=== PATIENT | female | born 1950 | race Two or more races ===

== ENCOUNTER 2019-10-04 09:57 | Inpatient (IN) | payer MEDICARE ==
[~2019-10-04] VITALS: Ht 157.5 cm; Wt 71.7 kg
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
[2019-10-04 10:36] LABS: BASOPHILS # (AUTO) 0.1 /CMM (0.0-0.2); BASOPHILS % (AUTO) 0.9 % (0.0-2.0); EOSINOPHILS % (AUTO) 1.6 % (0.0-6.0); HEMATOCRIT 42 % (33-45); HEMOGLOBIN 13.8 g/dL (11.5-14.8); LYMPHOCYTES # (AUTO) 1.7 /CMM (0.8-4.8); LYMPHOCYTES % (AUTO) 28.1 % (20.0-44.0); MEAN CORPUSCULAR HGB CONC 33 g/dl (31.0-36.0); MEAN CORPUSCULAR VOLUME 92 fL (82-100); MONOCYTES # (AUTO) 0.4 /CMM (0.1-1.30); MONOCYTES % (AUTO) 7.3 % (2.0-12.0); NEUTROPHILS # (AUTO) 3.8 /CMM (1.8-8.9); NEUTROPHILS % (AUTO) 62.1 % (43.0-81.0); PLATELET COUNT (AUTO) 260 /CMM (150-450); RED BLOOD CELL COUNT(AUTO) 4.56 MIL/uL (4.0-5.2); WHITE BLOOD COUNT (AUTO) 6.1 K/uL (4.3-11.0)
[2019-10-04 10:48] LABS: APPEARANCE,URINE Clear (CLEAR); BILIRUBIN,URINE Negative (NEGATIVE); BLOOD, URINE Negative Ery/uL (NEGATIVE); COLOR,URINE Yellow (YELLOW); KETONES,URINE Negative (NEGATIVE); LEUKOCYTE ESTERASE ,URINE Trace (NEGATIVE); NITRITE, URINE Negative (NEGATIVE); PROTEIN,URINE Negative (NEGATIVE); UGLUCOSE Negative (NEGATIVE); UROBILINOGEN,URINE 0.2 EU/dL (0.2)
[2019-10-04 10:49] LABS: CALCIUM, SERUM 9.1 mg/dL (8.5-10.1); CARBON DIOXIDE 31 mmol/L (21-32); CHLORIDE 105 mmol/L (98-107); CREATININE 0.8 mg/dL (0.6-1.3); GLUCOSE 100 mg/dL (74-106); SODIUM SERUM 142 mmol/L (136-145); UREA NITROGEN, BLOOD 11 mg/dL (7-18)
[2019-10-04 10:54] LABS: SERUM AMMONIA 15 umol/L (11-32)
--- NOTE | 2019-10-04 11:00 | NUR ---
CALLED NURSING SUP FOR M/S BED.
--- NOTE | 2019-10-04 11:00 | NUR ---
patient taken to ct.
[2019-10-04 11:01] LABS: ALANINE AMINOTRANSFERASE 17 U/L (12-78); ALBUMIN 3.6 g/dL (3.4-5.0); ALKALINE PHOSPHATASE 112 U/L (46-116); ASPARTATE AMINOTRANSFERASE 16 U/L (15-37); BILIRUBIN,TOTAL 0.2 mg/dL (0.2-1.0); TOTAL PROTEIN, SERUM 7.4 g/dL (6.4-8.2)
[2019-10-04 11:02] LABS: SALICYLATE 1.2 mg/dL (2.8-20.0)
[2019-10-04 11:03] LABS: ACETAMINOPHEN < 2 ug/ml (10-30); THYROID STIMULATING HORMONE 2.146 uIU/mL (0.358-3.74)
[2019-10-04 11:07] LABS: BACTERIA,URINE Rare /HPF (None Seen); RBC,URINE 0-2 /HPF (0-2); SQUAMOUS EPITHELIAL CELL,UR Few /HPF (None Seen); WBC,URINE 0-2 /HPF (0-3)
--- NOTE | 2019-10-04 11:22 | NUR ---
NURSING SUP GAVE M/S BED 205-1.
--- NOTE | 2019-10-04 12:14 | NUR ---
report given to ADEN MERCHANT. Corrrection patient is a/ox2, with possible dementia and episode of wandering.
[2019-10-04] MEDS ORDERED: ZOLPIDEM TARTRATE 5 MG TABLET PO PRN (13:00)
[2019-10-04] MEDS ORDERED: LORAZEPAM 1 MG TABLET PO PRN (13:00)
[2019-10-04] MEDS ORDERED: ONDANSETRON HCL/PF 4 MG/2 ML VIAL IVP PRN (13:00)
[2019-10-04] MEDS ORDERED: HYDROCODONE/APAP 5/325MG 1 EACH TABLET PO PRN (13:00)
[2019-10-04] MEDS ORDERED: MAGNESIUM HYDROXIDE 30 ML UDC PO PRN (13:00)
[2019-10-04] MEDS ORDERED: MAG HYDROX/AL HYDROX/SIMETH 30 ML UDC PO PRN (13:00)
[2019-10-04] MEDS ORDERED: ACETAMINOPHEN 325 MG TABLET PO PRN (13:00)
--- NOTE | 2019-10-04 13:00 | NUR ---
MS/RN NOTE THE PATIENT IS RECEIVED FROM ER ON A GURNEY. THE PATIENT IS ASSISTED TO BED. PATIENT HAS STABLE GAIT. DENIES SOB. RESPIRATION REGULAR AND UNLABORED. DENIES SOB. COMPLAINS HEADACHE 09/11. PATIENT IS ALERT AND ORIENTED X2. RAC G 18 PATENT AND SALINE LOCKED. BED LOW AND LOCKED. SIDE RAILS UP X3. CALL LIGHT WITHIN REACH. WILL CONTINUE TO MONITOR.
[2019-10-04 15:57] VITALS: BP 129/59
[2019-10-04 16:00] VITALS: BP 125/65
--- NOTE | 2019-10-04 18:32 | NUR ---
MS/RN NOTE THE PATIENT IS IN BED. ALERT AND ORIENTED X2. ABLE TO MAKE NEEDS KNOWN VERBALLY. IN ROOM AIR AND SATURATION IS AT 99%. DENIES SOB. RESPIRATION REGULAR AND UNLABORED. DENIES PAIN. THE PATIENT IN NO APPARENT DISTRESS. RAC G 18 PATENT AND SALINE LOCKED. BED LOW AND LOCKED. SIDE RAILS UP X2. CALL LIGHT WITHIN REACH. WILL ENDORSE TO CHIEF TECHNOLOGY OFFICER.
--- NOTE | 2019-10-04 19:40 | NUR ---
RN OPENING NOTES RECEIVED REPORT FROM DAYSHIFT RN ADEN. FOUND Pt AWAKE, FIXING HER BED IN HER ROOM. NO S/S OF ACUTE DISTRESS OR SOB NOTED. NO C/O DISCOMFORT OR PAIN MENTIONED AT THIS TIME. Pt IS A/OX2, GEORGIAN SPEAKING ONLY, VERBAL, ABLE TO MAKE NEEDS KNOWN IN GEORGIAN. IV ACCESS ON RAC #18G, SL. SAFETY MEASURES IN PLACE. HELPED Pt GET SETTLED INTO BED. BED LOW, LOCKED, HOB ELEVATED, SIDE RAILS UP, CALL LIGHT AND BEDSIDE TABLE WITHIN REACH. BED ALARM ON. WILL CONTINUE TO MONITOR Pt's CONDITION ANS SAFETY THROUGHOUT THE NIGHT.
[2019-10-04 20:00] VITALS: BP 114/66
--- NOTE | 2019-10-04 20:00 | NUR ---
LUCIUS (Pt's FRIEND); HOME #: [phone]; CELL #: [phone].
[2019-10-04 21:00] VITALS: BP 114/66
[2019-10-05 06:18] LABS: BASOPHILS % (AUTO) 0.9 % (0.0-2.0); EOSINOPHILS % (AUTO) 2.9 % (0.0-6.0); HEMATOCRIT 41 % (33-45); HEMOGLOBIN 13.4 g/dL (11.5-14.8); LYMPHOCYTES # (AUTO) 1.8 /CMM (0.8-4.8); LYMPHOCYTES % (AUTO) 39.2 % (20.0-44.0); MEAN CORPUSCULAR HGB CONC 33 g/dl (31.0-36.0); MEAN CORPUSCULAR VOLUME 91 fL (82-100); MONOCYTES # (AUTO) 0.4 /CMM (0.1-1.30); MONOCYTES % (AUTO) 7.9 % (2.0-12.0); NEUTROPHILS # (AUTO) 2.2 /CMM (1.8-8.9); NEUTROPHILS % (AUTO) 49.1 % (43.0-81.0); PLATELET COUNT (AUTO) 244 /CMM (150-450); RED BLOOD CELL COUNT(AUTO) 4.47 MIL/uL (4.0-5.2); WHITE BLOOD COUNT (AUTO) 4.5 K/uL (4.3-11.0)
[2019-10-05 06:37] LABS: CALCIUM, SERUM 8.6 mg/dL (8.5-10.1); CREATININE 0.7 mg/dL (0.6-1.3); MAGNESIUM 2.3 mg/dL (1.8-2.4); PHOSPHORUS 4.4 mg/dL (2.5-4.9); POTASSIUM 4.3 mmol/L (3.5-5.1)
--- NOTE | 2019-10-05 06:45 | NUR ---
RN CLOSING NOTES NO SIGNIFICANT CHANGES IN Pt's CONDITION. NO S/S OF ACUTE DISTRESS OR SOB NOTED DURING THE NIGHT. Pt REMAINED STABLE PER BASELINE. ALL NEEDS MET AND ATTENDED TO. SAFETY MEASURES IN PLACE. Pt RESTING IN BED. WILL ENDORSE TO DAYSHIFT RN FOR Pt's TOMASA.
--- NOTE | 2019-10-05 07:40 | NUR ---
MS/RN NOTE THE PATIENT IS RECEIVED IN BED. PATIENT IS ALERT AND ORIENTED X2. IN ROOM AIR AND DENIES SOB. RESPIRATION REGULAR AND UNLABORED. DENIES PAIN. THE PATIENT IS IN NO APPARENT DISTRESS. RAC G 18 PATENT AND SALINE LOCKED. BED LOW AND LOCKED. SIDE RAILS UP X3. CALL LIGHT WITHIN REACH. WILL CONTINUE TO MONITOR.
[2019-10-05 08:00] VITALS: BP 122/71
[2019-10-05 16:00] VITALS: BP 123/55
--- NOTE | 2019-10-05 18:14 | NUR ---
MS/RN NOTE THE PATIENT ALERT AND ORIENTED X2. DENIES SOB. RESPIRATION REGULAR AND UNLABORED. IN ROOM AIR AND SATURATION LEVEL IS AT 97%. DENIES PAIN. THE PATIENT IN NO APPARENT DISTRESS. RAC G 18 PATENT AND SALINE LOCKED. BED LOW AND LOCKED. SIDE RAILS UP X3. CALL LIGHT WITHIN REACH. WILL ENDORSE TO SEISMIC COMPUTER.
--- NOTE | 2019-10-05 19:20 | NUR ---
RECEIVED PT IN BED A/O X 2 WATCHING TV STABLE AND NOT IN DISTRESS. SAFETY MEASURES AT ALL TIMES. WILL CONT TO MONITOR.
[2019-10-05 20:00] VITALS: BP 147/72
[2019-10-05] MEDS ORDERED: QUETIAPINE FUMARATE 25 MG TABLET PO SCH (22:00)
--- NOTE | 2019-10-06 06:21 | NUR ---
NO SIGNIFICANT CHANGES, PT SLEPT WELL, STABLE, NEEDS ATTENDED AND ANTICIPATED, KEPT CLEAN, DRY AND COMFORTABLE. AM CARE RENDERED. GOOD SKIN CARE AT ALL TIMES. SAFETY MEASURES AT ALL TIMES. WILL ENDORSE TO NEXT SHIFT.
--- NOTE | 2019-10-06 07:10 | NUR ---
RN OPENING NOTES RECEIVED PATIENT IN BED RESTING. RESPONSIVE TO VERBAL AND TACTILE STIMULI, FOLLOWS COMMAND, PANAMANIAN SPEAKING. NIOT IN ANY FORM OF DISTRESS. NO SOB. DENIED PAIN OR DISCOMFORT AT THIS TIME. IV ACCESS INTACT AND PATENT. KEPT PATIENT SAFE AND COMFORTABLE. BED IN LOW/LOCKED POSITION, SIDERAILS UPX2, CALL LIGHT IN REACH. WILL CONT TO MONITOR ACCORDINGLY.
[2019-10-06 07:49] VITALS: BP 131/83
[2019-10-06] MEDS ORDERED: LORA-259 PO (15:11)
[2019-10-06] MEDS ORDERED: MAGN400O6 PO (15:11)
[2019-10-06] MEDS ORDERED: ONDA4VIA52 IVP (15:11)
[2019-10-06] MEDS ORDERED: HYDR-4384 PO (15:11)
[2019-10-06] MEDS ORDERED: MAG30ORA PO (15:11)
[2019-10-06] MEDS ORDERED: ZOLP5TAB8 PO (15:11)
[2019-10-06] MEDS ORDERED: ACET-868 PO (15:11)
[2019-10-06] MEDS ORDERED: QUET25TA PO (15:11)
[2019-10-06 16:00] VITALS: BP 117/78
--- NOTE | 2019-10-06 17:20 | NUR ---
DISCHARGED PATIENT TO [facility] GPS ROOM 215-1 VIA WHEELCHAIR, FRIEND PRESENT AT THE UNIT. PATIENT IN STABLE CONDITION. DISCHARGED INSTRUCTIONS GIVEN TO THE PATIENT, VERBALIZED UNDERSTANDING. ALL BELONGINGS RETURNED, FORMS SIGNED. IV ACCESS REMOVED, TIP INTACT, NO COMPLICATIONS. REFUSED SKIN PHOTOS. REPORT GIVEN TO SANJANA ARAIZA NURSE. PATIENT DENIED SI/HI.
== END 2019-10-06 17:00 | DRG 640 ==
LOC: ER 10:01 → MEDSG2 12:35
PROVIDERS: ADMIT Nurse Practitioner Acute Care; ATTEND Internal Medicine
DX: E86.0 Dehydration (principal); G93.41 Metabolic encephalopathy; F03.90 Unspecified dementia, unspecified severity, without behavioral disturbance, psychotic disturbance, mood disturbance, and anxiety; E66.9 Obesity, unspecified; Z68.30 Body mass index [BMI] 30.0-30.9, adult; F29 Unspecified psychosis not due to a substance or known physiological condition; Z68.28 Body mass index [BMI] 28.0-28.9, adult
CPT/HCPCS: 36415; 70450-TC; 71045-TC; 80048-TC; 80061-TC; 80076-TC; 81000-TC; 82140-TC; 83735-TC; 84100-TC; 84443-TC; 85025-TC; 85730-TC; 87081-TC; 87086-TC; G0378; G0480

== ENCOUNTER 2019-10-06 14:25 | Inpatient (IN) | payer MEDICARE ==
[~2019-10-06] VITALS: Ht 157.5 cm; Wt 72.6 kg
[2019-10-06] MEDS ORDERED: HYDR-4384 PO (15:11)
[2019-10-06] MEDS ORDERED: LORA-259 PO (15:11)
[2019-10-06] MEDS ORDERED: MAG30ORA PO (15:11)
[2019-10-06] MEDS ORDERED: QUET25TA PO (15:11)
[2019-10-06] MEDS ORDERED: ACET-868 PO (15:11)
[2019-10-06] MEDS ORDERED: ONDA4VIA52 IVP (15:11)
[2019-10-06] MEDS ORDERED: MAGN400O6 PO (15:11)
[2019-10-06] MEDS ORDERED: ZOLP5TAB8 PO (15:11)
[2019-10-06 17:00] VITALS: BP 135/89
--- NOTE | 2019-10-06 17:00 | NUR ---
COOPER HELPER NOTE- PT ADMITTED VIA 205 MED SURG DIRECT ADMISSION 5150 GD FOR INCREASING PARANOIA, WANDERING BEHAVIORS AND CONFUSION. PT DEEMED NO LONGER ABLE TO TAKE CARE OF HERSELF. UPON FACE TO FACE ADMISSION, PT ALERT ORIENTED TO PERSON PLACE TIME. SOMEWHAT CONFUSED. PT FRIEND AT BEDSIDE TO ACT DIRECTOR OF CONSUMER MARKETING PT IS TAJIK SPEAKING. VS - B/P- 116/58. HR- 78/M. RR- 18/M, TEMP- 98.1, SATURATION-95% RA. PT IS A FULL CODE WITH NO KNOWN ALLERGIES. PT ON A REGULAR DIET. LABS WNL. PT IS AMBULATORY W STEADY GAIT AND USES BR. SKIN CHECK COMPLETED BY FEMALE RN. SKIN INTACT. PT RIGHTS HANDBOOK AND INFORMATION GIVEN TO PT. ALSO ORIENTED TO UNIT. CURRENTLY DENIES SI HI [facility] AT PRESENT MOMENT. VALUABLES STOWED AND RECORDED PER GPS PROTOCOL. PT ID [id number] APPLIED TO PT. BED IN LOW POSITION, BED ALARM ON. WILL PROVIDE CALM THERAPEUTIC ENVIRONMENT AND MONITOR PT PER GPS PROTOCOL.
[2019-10-06] MEDS ORDERED: MAG HYDROX/AL HYDROX/SIMETH 30 ML UDC PO PRN (17:30)
[2019-10-06] MEDS ORDERED: MAGNESIUM HYDROXIDE 30 ML UDC PO PRN (17:30)
[2019-10-06] MEDS ORDERED: BLOOD SUGAR DIAGNOSTIC 1 EACH STRIP IN ONE (17:30)
[2019-10-06] MEDS ORDERED: ACETAMINOPHEN 325 MG TABLET PO PRN (17:30)
[2019-10-06] MEDS ORDERED: LORAZEPAM 0.5 MG TABLET PO PRN (17:30)
[2019-10-06] MEDS ORDERED: TEMAZEPAM 7.5 MG CAPSULE PO PRN (17:30)
--- NOTE | 2019-10-06 18:13 | NUR ---
RN-CO: DR ANAI HANNON MADE AWARE THAT PATIENT IS IN THE UNIT AND HE CAN RECONCILE MEDICATIONS. DR SAINI ORDERED TO PUT HIS ADMITTING ORDERS NOTED. PATIENT WAS ORIENTED TO THE UNIT.( W/ THE HELP OF A ARMENIAN SPEAKING STAFF.)
--- NOTE | 2019-10-06 19:20 | NUR ---
RN OPENING NOTES: PT. RESTING IN BED ,CONFUSED PARANOID ,DISORGNIZED EASILY AGITATED , ALL NEEDS ATTENDED ANTICIPATED, ENCOURAGED PT. TO VERBALIZED ANY FEELING , NO ACUTE DISTRESS NOTED , NEEDS FREQUENTLY REDIRECTIONS , REALITY ORIENTIONS PROVIDED, WILL CONTINUITY WITH CARE.
[2019-10-06 20:20] VITALS: BP 116/58
[2019-10-07 07:29] LABS: ALBUMIN 3.5 g/dL (3.4-5.0); BILIRUBIN,TOTAL 0.3 mg/dL (0.2-1.0); CALCIUM, SERUM 8.9 mg/dL (8.5-10.1); CREATININE 0.7 mg/dL (0.6-1.3); POTASSIUM 4.2 mmol/L (3.5-5.1); TOTAL PROTEIN, SERUM 7.3 g/dL (6.4-8.2)
[2019-10-07 08:00] VITALS: BP 145/74
--- NOTE | 2019-10-07 09:00 | NUR ---
RN OPENING NOTE: RECEIVED PT LYING IN BED. NO ACUTE DISTRESS NOTED. VSS, AFEBRILE. PT A+OX3. PT IS ABLE TO MAKE NEEDS KNOWN. PT IS CONFUSED AND EASILY AGITATED. NO S/SX OF UTI NOTED. PT IS PARANOID AT TIMES. PT DENIES SI/HI/AH/VH AT PRESENT TIME. PT IS COMPLIANT WITH MEDICATION ADMINISTRATION AND PLAN OF CARE. PT AMBULATORY WITH STEADY GAINT. SELF CARE WITH ADL'S AND INTAKE. PT C/O 03/11 HEADACHE. REQUESTING TYLENOL. TYLENOL 650MG PO PRN GIVEN. WILL CONT TO MONITO PT FOR SAFETY AND BEHAVIOR PER GPS PROTOCOL.
--- NOTE | 2019-10-07 09:03 | NUR ---
RN NOTE: PT C/O HEADACHE. UNABLE TO SCALE ON PAIN SCALE. REQUESTING TYLENOL. TYLENOL 650MG PO GIVEN
[2019-10-07] MEDS: DIVALPROEX SODIUM 125 MG TABLET.DR PO SCH ×2 (11:59→20:57)
[2019-10-07 16:00] VITALS: BP 121/69
--- NOTE | 2019-10-07 19:20 | NUR ---
GPS RN OPENING NOTES: PT. WALKING AROUND THE UNIT ,CONFUSED PARANOID ,DISORGNIZED EASILY AGITATED , ALL NEEDS ATTENDED ANTICIPATED, ENCOURAGED PT. TO VERBALIZED ANY FEELING , NO ACUTE DISTRESS NOTED , NEEDS FREQUENTLY REDIRECTIONS , REALITY ORIENTIONS PROVIDED, WILL CONTINUITY WITH CARE.
[2019-10-07 20:20] VITALS: BP 125/76
[2019-10-07] MEDS: QUETIAPINE FUMARATE 25 MG TABLET PO SCH (21:06)
--- NOTE | 2019-10-08 07:35 | NUR ---
RN OPENING NOTE: RECEIVED PT LYING IN BED. NO ACUTE DISTRESS NOTED. VSS, AFEBRILE. PT A+OX3, ABLE TO MAKE NEEDS KNOWN. BULGARIAN SPEAKING. PT PLEASANT AND COOPERATIVE. PT WITH DISORGANIZED THOUGHT PROCESS. VISIBLE ON THE UNIT.PT DENIES SI/HI/AH/VH AT PRESENT TIME. EDUCATED PT ON USE OF THE CALL GONZALEZ. SIDE RAILS UP X 2. BED IN LOW AND LOCKED POSITION.WILL CONT TO MONITOR PT FOR SAFETY AND BEHAVIOR PER GPS PROTOCOL
[2019-10-08 08:00] VITALS: BP 118/61
[2019-10-08] MEDS: DIVALPROEX SODIUM 125 MG TABLET.DR PO SCH ×2 (08:19→20:18)
[2019-10-08 16:06] VITALS: BP 136/74
[2019-10-08 20:11] VITALS: BP 121/86
[2019-10-08] MEDS: QUETIAPINE FUMARATE 25 MG TABLET PO SCH (21:00)
--- NOTE | 2019-10-09 07:45 | NUR ---
RN OPENING NOTE: PT RECEIVED LYING IN BED. NO ACUTE DISTRESS NOTED. A+OX2, ABLE TO MAKE NEEDS KNOWN. PT CONT TO BE PARANOID AND DELUSIONAL. PT IS DISHEVELED AND UNKEPT. PT INDEPENDENT WITH ADL'S AND AMBULATORY. PT COMPLIANT WITH MEDICATION ADMINISTRATION AND PLAN OF CARE. PT DENIES SI/HI/AH/VH AT PRESENT TIME. BED IN LOW AND LOCKED POSITION WITH SIDE RAILS UP X 2. WILL CONT TO MONITOR PT FOR BEHAVIOR AND SAFETY PER GPS PROTOCOL
[2019-10-09 08:00] VITALS: BP 132/58
[2019-10-09] MEDS: DIVALPROEX SODIUM 125 MG TABLET.DR PO SCH ×2 (08:15→17:15)
--- NOTE | 2019-10-09 09:10 | NUR ---
CAREGIVER CONTACT: SW spoke with pts friend/caregiver Yumiko [phone] who provided SW with collateral information and discussed treatment and discharge planning. Per friend, she states that pt recently came from [place] on 09/12/19. She states that pts lives here and is under the care of a caregiver who provided 24 hour care to him as he suffered 2 strokes and is blind. She states that pt came with the intention to visit her but when she arrived she was very confused and agitated and his caregiver refused to allow pt to stay with her. Friend then states that she took pt to live with her and has been having difficulties with pt ever since. She states that pt is very confused and paranoid and accuses other peopler of stealing from her. She also states that she wanders at night and often talks to herself. She says that pt has 7 adult children but no one has made themselves responsible for her care as she states pt is very difficult and refuses care and therefore children do not want to help with pts care. Friend states that she does not have pts children's phone numbers and has not been able to contact them. Friend states that pt will need placement as she is unable to continue caring for her.
--- NOTE | 2019-10-09 09:43 | NUR ---
FACILITY CONTACT: SW received a call from luther Kebede at [facility] Address: [address], [place] [address] stating pt has been accepted to their facility. She states a referral was made by ANH Hou manager case before pt was transferred to GPS from Med/Surg.
--- NOTE | 2019-10-09 10:43 | NUR ---
INITIAL DISCHARGE PLAN: Per pts friend/caregiver Yumiko [phone], pt needs placement as she is unable to care for her at her home anymore. SW received a call from luther Kebede at [facility] Address: [address] [place] [address] stating pt has been accepted to their facility. MARCO will help form a safe and proper discharge in collaboration with .
--- NOTE | 2019-10-09 15:39 | NUR ---
GROUP NOTE: Pt was present in group on this present day discussing the topic of "discharge planning." S: "I don't know where I will go maybe I'll go back to [place] but I really don't like it there." O: Pt appears confused and disorganized and unable to state a safe plan for discharge. Pt kept repeating the same thing and was unable to process the information given to her. A: Pt has poor insight and believes she is able to make her own decisions without jeopardizing her future. P: Pt will continue to assess pts level of insight and provide pt with reality-based statements daily.
[2019-10-09 16:00] VITALS: BP 114/69
--- NOTE | 2019-10-09 19:20 | NUR ---
GPS RN OPENING NOTE: PT RECEIVED RESTING IN BED. TONGAN SPEAKING. NO ACUTE DISTRESS NOTED. A+OX2-3, ABLE TO MAKE NEEDS KNOWN. PT CONT TO BE PARANOID AND DELUSIONAL AT TIMES. PT IS COOPERATIVE & CALM/RELAXED AT THIS TIME. PT INDEPENDENT WITH ADL'S AND AMBULATORY/STEADY. PT. COMPLIANT WITH MEDICATION ADMINISTRATION AND PLAN OF CARE. PT. DENIES SI/HI/AH/VH AT PRESENT TIME. BED IN LOW AND LOCKED POSITION WITH SIDE RAILS UP X 2. WILL CONT TO MONITOR PT FOR BEHAVIOR AND SAFETY PER GPS PROTOCOL
--- NOTE | 2019-10-09 19:35 | NUR ---
FRIEND VISITED PATIENT'S FRIEND MARKUS VISITED THE PATIENT, BROUGHT HEARING AID BATTERIES TO REPLACE. HEARING AIDS & DENTURES ARE WITH THE PATIENT AT BED SIDE. WILL CONTINUE TO MONITOR FOR ANY CHANGES.
[2019-10-09 20:04] VITALS: BP 155/81
[2019-10-09] MEDS: QUETIAPINE FUMARATE 25 MG TABLET PO SCH (21:56)
--- NOTE | 2019-10-10 07:45 | NUR ---
RN OPENING NOTE: RECEIVED PT SLEEPING IN BED. NO ACUTE DISTRESS NOTED. VSS, AFEBRILE. PT A+OX3. MARTINIQUAIS SPEAKING. PT IS WELL GROOMED AND INDEPENDENT WITH ADLS. PT CALM AND COOPERATIVE. PT DENIES SI/HI/AH/VH AT PRESENT TIME. PT COMPLIANT WITH MEDICATION ADMINISTRATION AND PLAN OF CARE. WILL CONT TO MONITOR PT FOR SAFETY AND BEHAVIOR PER GPS PROTOCOL
[2019-10-10 08:00] VITALS: BP 135/67
[2019-10-10] MEDS: DIVALPROEX SODIUM 125 MG TABLET.DR PO SCH ×2 (08:16→16:08)
--- NOTE | 2019-10-10 15:28 | NUR ---
GROUP NOTE: Pt was present in group discussing the topic of "insight into mental illness." S: "I don't need to be here my 'chayote' is good, I'm not crazy I'm just here for medical reasons. If I was able to come to [place] from [place] that means I'm okay." O: Pt was restless and has no boundaries she was grabbing SW's arm and asked her to meet with her privately due to her not wanting to talk in front of another pt whom she states she doesn't like because shes "crazy and does not know what she is saying." A: Pt is in denial of her mental illness and believes she is okay to make her own decisions. Pt denies confusion. P: SW will continue to explore SNF placement and also encourage pt self-regulate mood and behaviors.
[2019-10-10 16:00] VITALS: BP 129/72
[2019-10-10 20:33] VITALS: BP 143/70
[2019-10-10] MEDS: QUETIAPINE FUMARATE 25 MG TABLET PO SCH (21:01)
[2019-10-11 08:00] VITALS: BP 122/64
[2019-10-11] MEDS: DIVALPROEX SODIUM 125 MG TABLET.DR PO SCH ×2 (08:11→16:18)
--- NOTE | 2019-10-11 15:40 | NUR ---
GROUP NOTE: Pt was present in group discussing the topic of "decision-making." S: "The lady dumped me here and I just need to go back to [place] but I don't want to continue being here I'm not mentally ill. Ill accept going to a SNF until my son comes for me." O: Pt is Portuguese speaking only do had a difficult time following direction and waiting her turn to speak. A: Pt has not gained insight into her mental illness and believes there is nothing wrong with her. P: SW will continue to encourage group milieu and medication-compliance for stabilization.
[2019-10-11 16:00] VITALS: BP 140/73
[2019-10-11 20:00] VITALS: BP 125/57
[2019-10-11] MEDS: QUETIAPINE FUMARATE 25 MG TABLET PO SCH (21:29)
[2019-10-12 06:20] LABS: EOSINOPHILS % (AUTO) 3.5 % (0.0-6.0); HEMATOCRIT 41 % (33-45); HEMOGLOBIN 13.5 g/dL (11.5-14.8); LYMPHOCYTES # (AUTO) 2.2 /CMM (0.8-4.8); LYMPHOCYTES % (AUTO) 46.4 % (20.0-44.0); MEAN CORPUSCULAR HGB CONC 33 g/dl (31.0-36.0); MEAN CORPUSCULAR VOLUME 91 fL (82-100); MONOCYTES # (AUTO) 0.4 /CMM (0.1-1.30); MONOCYTES % (AUTO) 8.5 % (2.0-12.0); NEUTROPHILS # (AUTO) 1.9 /CMM (1.8-8.9); NEUTROPHILS % (AUTO) 40.6 % (43.0-81.0); PLATELET COUNT (AUTO) 262 /CMM (150-450); RED BLOOD CELL COUNT(AUTO) 4.52 MIL/uL (4.0-5.2); WHITE BLOOD COUNT (AUTO) 4.8 K/uL (4.3-11.0)
[2019-10-12 07:00] LABS: ALBUMIN 3.1 g/dL (3.4-5.0); BILIRUBIN,TOTAL 0.2 mg/dL (0.2-1.0); CALCIUM, SERUM 8.8 mg/dL (8.5-10.1); CREATININE 0.6 mg/dL (0.6-1.3); MAGNESIUM 2.4 mg/dL (1.8-2.4); PHOSPHORUS 4.3 mg/dL (2.5-4.9); POTASSIUM 4.1 mmol/L (3.5-5.1); TOTAL PROTEIN, SERUM 6.7 g/dL (6.4-8.2)
[2019-10-12 08:00] VITALS: BP 145/74
[2019-10-12] MEDS: DIVALPROEX SODIUM 125 MG TABLET.DR PO SCH (08:15)
--- NOTE | 2019-10-12 08:39 | NUR ---
SNF REFERRAL: MARCO faxed SNF referral to Tala preparation center coordinator at [facility] ([facility]) [address] [address] [address] for review.
[2019-10-12 16:00] VITALS: BP 121/68
[2019-10-12 20:00] VITALS: BP 145/67
[2019-10-12] MEDS ORDERED: QUETIAPINE FUMARATE 25 MG TABLET PO SCH (22:00)
[2019-10-12] MEDS: DIVALPROEX SODIUM 500 MG TABLET.DR PO SCH (22:05)
[2019-10-13 08:00] VITALS: BP 131/74
[2019-10-13 08:25] LABS: EOSINOPHILS % (AUTO) 3.5 % (0.0-6.0); HEMATOCRIT 41 % (33-45); HEMOGLOBIN 13.3 g/dL (11.5-14.8); LYMPHOCYTES # (AUTO) 2.2 /CMM (0.8-4.8); LYMPHOCYTES % (AUTO) 46.4 % (20.0-44.0); MEAN CORPUSCULAR HGB CONC 32 g/dl (31.0-36.0); MEAN CORPUSCULAR VOLUME 91 fL (82-100); MONOCYTES # (AUTO) 0.4 /CMM (0.1-1.30); MONOCYTES % (AUTO) 8.3 % (2.0-12.0); NEUTROPHILS # (AUTO) 1.9 /CMM (1.8-8.9); NEUTROPHILS % (AUTO) 40.8 % (43.0-81.0); PLATELET COUNT (AUTO) 257 /CMM (150-450); RED BLOOD CELL COUNT(AUTO) 4.57 MIL/uL (4.0-5.2); WHITE BLOOD COUNT (AUTO) 4.7 K/uL (4.3-11.0)
[2019-10-13 09:00] LABS: ALBUMIN 3.2 g/dL (3.4-5.0); CALCIUM, SERUM 8.6 mg/dL (8.5-10.1); CREATININE 0.7 mg/dL (0.6-1.3); POTASSIUM 4.2 mmol/L (3.5-5.1)
[2019-10-13] MEDS: DIVALPROEX SODIUM 125 MG TABLET.DR PO SCH (09:14)
[2019-10-13 09:50] LABS: TOTAL PROTEIN, SERUM 6.9 g/dL (6.4-8.2)
--- NOTE | 2019-10-13 09:57 | NUR ---
Dr. Wallace as the medical anthropologist of the unit gave an order for denial of right to do room search to look for the missing shower head with the hose. Staffs made a thorough search and the thing that we are looking is not in the room.
[2019-10-13 10:07] LABS: BILIRUBIN,TOTAL 0.2 mg/dL (0.2-1.0)
[2019-10-13 16:00] VITALS: BP 125/68
[2019-10-13] MEDS: QUETIAPINE FUMARATE 25 MG TABLET PO SCH (22:05)
[2019-10-13] MEDS: DIVALPROEX SODIUM 500 MG TABLET.DR PO SCH (22:05)
[2019-10-14 08:00] VITALS: BP 107/60
[2019-10-14] MEDS: DIVALPROEX SODIUM 125 MG TABLET.DR PO SCH (08:44)
[2019-10-14 16:00] VITALS: BP 135/78
--- NOTE | 2019-10-14 19:30 | NUR ---
GPS RN NOTE, RECEIVED PATIENT AWAKE AND IN BED, NO S/S OR COMPLAINTS OF PAIN AT THIS TIME. PATIENT IS DISPLAYING NO S/S OF APPARENT DISTRESS AT THIS TIME. PATIENT BREATHING IS UNLABORED WITH EQUAL RISE AND FALL OF THE CHEST. PATIENT IS ALERT AND ORIENTED X 2-3 ON ROOM AIR WITH A SPO2 97%. PATIENT IS COMPLIANT WITH MEDICATIONS, ANXIOUS AT TIMES, PLEASANT, AND COOPERATIVE. PATIENT DENIES SUICIDAL AND HOMICIDAL IDEATIONS AT THIS TIME. PATIENT ASSISTED WITH TURNING AND REPOSITIONING Q2HR AND PRN FOR COMFORT AND CIRCULATION. PATIENT HAS NO NEEDS AT THIS TIME. PATIENT EDUCATED ON THE USE OF THE CALL GONZALEZ. PATIENT BED SIDE RAILS UP X 2 FOR SAFETY. PATIENT BED IS LOCKED, LOW, WITH BED ALARM ON. WILL CONTINUE TO MONITOR THIS PATIENT Q15 MINUTES WITH THE HELP OF STAFF TO MAINTAIN SAFETY.
[2019-10-14 20:54] VITALS: BP 122/67
[2019-10-14] MEDS: QUETIAPINE FUMARATE 25 MG TABLET PO SCH (21:40)
[2019-10-14] MEDS: DIVALPROEX SODIUM 500 MG TABLET.DR PO SCH (21:40)
[2019-10-15 08:00] VITALS: BP 123/63
[2019-10-15] MEDS: DIVALPROEX SODIUM 125 MG TABLET.DR PO SCH (08:31)
--- NOTE | 2019-10-15 10:56 | NUR ---
GPS RN NOTE: RECEIVED PATIENT LAYING IN BED, ALERT AND ORIENTED X2-3. PT CALM AND COOPERATIVE, FORGETFUL AT TIMES. DENIES SI AT THIS TIME. NO S/S OF ANY DISTRESS. PT IS MEDICATION COMPLIANT. SAFETY CHECKS DONE. FALL PRECAUTION CONTINUED. BED ALARM ON. BED IN LOW LOCKED POSITION. CALL LIGHT WITHIN REACH. WILL CONTINUE TO MONITOR Q15MIN FOR MOOD, SAFETY AND BEHAVIOR.
[2019-10-15 16:00] VITALS: BP 136/73
[2019-10-15 20:24] VITALS: BP 158/78
[2019-10-15] MEDS: DIVALPROEX SODIUM 500 MG TABLET.DR PO SCH (21:10)
[2019-10-15] MEDS: QUETIAPINE FUMARATE 25 MG TABLET PO SCH (21:11)
[2019-10-16 08:00] VITALS: BP 110/63
[2019-10-16] MEDS: DIVALPROEX SODIUM 125 MG TABLET.DR PO SCH (08:08)
[2019-10-16 12:00] LABS: BASOPHILS % (AUTO) 0.6 % (0.0-2.0); EOSINOPHILS % (AUTO) 3.1 % (0.0-6.0); HEMATOCRIT 42 % (33-45); HEMOGLOBIN 13.7 g/dL (11.5-14.8); LYMPHOCYTES # (AUTO) 1.5 /CMM (0.8-4.8); LYMPHOCYTES % (AUTO) 32.4 % (20.0-44.0); MEAN CORPUSCULAR HGB CONC 32 g/dl (31.0-36.0); MEAN CORPUSCULAR VOLUME 91 fL (82-100); MONOCYTES # (AUTO) 0.4 /CMM (0.1-1.30); MONOCYTES % (AUTO) 8.4 % (2.0-12.0); NEUTROPHILS # (AUTO) 2.6 /CMM (1.8-8.9); NEUTROPHILS % (AUTO) 55.5 % (43.0-81.0); PLATELET COUNT (AUTO) 267 /CMM (150-450); RED BLOOD CELL COUNT(AUTO) 4.65 MIL/uL (4.0-5.2); WHITE BLOOD COUNT (AUTO) 4.6 K/uL (4.3-11.0)
[2019-10-16 12:08] LABS: ALBUMIN 3.5 g/dL (3.4-5.0); BILIRUBIN,TOTAL 0.2 mg/dL (0.2-1.0); CREATININE 0.7 mg/dL (0.6-1.3); POTASSIUM 4.3 mmol/L (3.5-5.1); TOTAL PROTEIN, SERUM 7.3 g/dL (6.4-8.2)
[2019-10-16 16:00] VITALS: BP 114/76
[2019-10-16] MEDS: QUETIAPINE FUMARATE 25 MG TABLET PO SCH ×2 (17:31→21:14)
[2019-10-16 21:01] VITALS: BP 150/71
[2019-10-16 21:12] VITALS: BP 116/58
[2019-10-16] MEDS: DIVALPROEX SODIUM 500 MG TABLET.DR PO SCH (21:14)
[2019-10-17 08:00] VITALS: BP 148/72
[2019-10-17] MEDS: DIVALPROEX SODIUM 125 MG TABLET.DR PO SCH ×2 (09:00→10:34)
[2019-10-17] MEDS: QUETIAPINE FUMARATE 25 MG TABLET PO SCH ×3 (09:55→21:12)
[2019-10-17] MEDS: DIVALPROEX SODIUM 500 MG TABLET.DR PO SCH ×2 (09:56→21:11)
[2019-10-17] MEDS ORDERED: DIVALPROEX SODIUM 500 MG TABLET.DR PO ONE (10:00)
[2019-10-17 16:00] VITALS: BP 119/69
--- NOTE | 2019-10-17 21:00 | NUR ---
GPS RN NOTE: PATIENT AWAKE, ALERT AND ORIENTED X 2-3, CALM, COOPERATIVE, DENIES SI/HI, MED COMPLIANT, NO AGITATION NOTED. SNACKS GIVEN AND PATIENT APPRECIATED. WILL CONTINUE TO MONITOR Q15 MINS FOR SAFETY
[2019-10-17 21:24] VITALS: BP 139/77
[2019-10-18 08:00] VITALS: BP 112/66
[2019-10-18] MEDS: QUETIAPINE FUMARATE 25 MG TABLET PO SCH (08:10)
[2019-10-18] MEDS: DIVALPROEX SODIUM 500 MG TABLET.DR PO SCH (08:10)
--- NOTE | 2019-10-18 09:47 | NUR ---
DISCHARGE NOTE: Pt will be discharged at 1:00pm via [facility] to [facility] ([facility]) [address] [address] [address] . Pts friend/caregiver Yumiko [phone] has been notified and agrees with discharge plan. Pts mood is euthymic with congruent affect. Pt denied visual/auditory hallucinations and denied suicidal/homicidal ideation. Pt will be under the care of Psychiatrist: Dr. Abby Reno [address], [place] [address] [phone] and Water [employer] [place]erry Operator: Dr. Hunter Cabrera Address: [address], [place] [address] . The multidisciplinary exit care form was done, printed, signed, and given to the patient.
--- NOTE | 2019-10-18 09:48 | NUR ---
Dr. Reno gave an order to D/C hold and D/C to [facility], to continue same meds including prn and to follow up with psych and medical doctors.
--- NOTE | 2019-10-18 13:55 | NUR ---
NURSING DISCHARGE NOTE: PT WAS [facility] AT 1355 [facility] ([facility]) LOCATED AT [id number] [place] [phone]. . PT'S FRIEND/CAREGIVER MARKUS HAS BEEN NOTIFIED. PT LEFT THE UNIT VIA AMBULANZ TRIP #[id number] ON [facility] ACCOMPANIED BY 2 DIESEL MECHANIC APPRENTICE. PT IS A&OX3, CALM, COOPERATIVE, PLEASANT, MED COMPLIANT, DENIES SI/HI/AVH AT THE TIME OF DISCHARGE. NO S/S OF ANY DISTRESS NOTED. NO C/O PAIN OR ANY DISCOMFORT. PT WAS COOPERATIVE WITH THE DISCHARGE PROCESS AND HAS SIGNED ALL DISCHARGE PAPERWORK. ALL BELONGINGS WERE RETURNED TO PT AND PT HAS SIGNED THE BELONGINGS FORM. SKIN INTACT. VSS. REPORT WAS GIVEN TO MAYUR MANN AT [phone]. DISCHARGE INSTRUCTIONS WERE GIVEN TO PT TRANSLATED BY WELSH SPEAKING NURSING STAFF AND PT VERBALIZED UNDERSTANDING. DISCHARGE ORDER WAS GIVEN BY DR. SAINI WITH ORDER TO CONTINUE ALL ROUTINE AND PRN MEDICATIONS. PT HAS BEEN MEDICALLY CLEARED FOR DISCHARGE BY DR. BUCHANAN WITH ORDER TO CONTINUE ALL PRN MEDS.
== END 2019-10-18 13:55 | DRG 885 ==
LOC: GPS 15:03
PROVIDERS: ADMIT Psychiatry & Neurology Psychosomatic Medicine; ATTEND Registered Nurse
DX: F31.9 Bipolar disorder, unspecified (principal); F01.50 Vascular dementia, unspecified severity, without behavioral disturbance, psychotic disturbance, mood disturbance, and anxiety; G93.41 Metabolic encephalopathy; E44.1 Mild protein-calorie malnutrition; F29 Unspecified psychosis not due to a substance or known physiological condition; F41.9 Anxiety disorder, unspecified; E66.9 Obesity, unspecified; Z68.29 Body mass index [BMI] 29.0-29.9, adult; Z73.6 Limitation of activities due to disability; E88.09 Other disorders of plasma-protein metabolism, not elsewhere classified
CPT/HCPCS: 36415; 80048-TC; 80053-TC; 80061-TC; 80164-TC; 82962-TC; 83735-TC; 84100-TC; 84443-TC; 85025-TC

== ENCOUNTER 2020-03-18 13:29 | Inpatient (IN) | payer MEDICARE, OTHER ==
[~2020-03-18] VITALS: Ht 157.5 cm; Wt 75.3 kg
[~2020-03-18 13:29] MED LIST: ACET-868 PO; HYDR-4384 PO; LORA-259 PO; MAG30ORA PO; MAGN400O6 PO; ONDA4VIA52 IVP; QUET25TA PO; ZOLP5TAB8 PO
--- NOTE | 2020-03-18 13:40 | NUR ---
luz maria, from snf, agitated and hitting staff. Patient a/ox2 with episode of confusion. Upper Sorbian speaking only. Patient ambulatory with supervision. Needs attended.
[2020-03-18 14:09] LABS: APPEARANCE,URINE Clear (CLEAR); BILIRUBIN,URINE Negative (NEGATIVE); BLOOD, URINE Negative Ery/uL (NEGATIVE); COLOR,URINE Yellow (YELLOW); KETONES,URINE 15 (NEGATIVE); LEUKOCYTE ESTERASE ,URINE Negative (NEGATIVE); NITRITE, URINE Negative (NEGATIVE); PH,URINE 7.5 (5.0-8.0); PROTEIN,URINE 30 mg/dl (NEGATIVE); UGLUCOSE Negative (NEGATIVE)
[2020-03-18 14:12] LABS: BACTERIA,URINE Few /HPF (None Seen); MUCUS,URINE Few /LPF (None Seen); RBC,URINE 0-2 /HPF (0-2); SQUAMOUS EPITHELIAL CELL,UR Few /HPF (None Seen)
[2020-03-18 14:24] LABS: BASOPHILS % (AUTO) 0.6 % (0.0-2.0); EOSINOPHILS % (AUTO) 1.1 % (0.0-6.0); HEMATOCRIT 41 % (33-45); HEMOGLOBIN 13.2 g/dL (11.5-14.8); LYMPHOCYTES # (AUTO) 2.3 /CMM (0.8-4.8); LYMPHOCYTES % (AUTO) 40.8 % (20.0-44.0); MEAN CORPUSCULAR HGB CONC 32 g/dl (31.0-36.0); MEAN CORPUSCULAR VOLUME 93 fL (82-100); MONOCYTES # (AUTO) 0.4 /CMM (0.1-1.30); MONOCYTES % (AUTO) 6.3 % (2.0-12.0); NEUTROPHILS # (AUTO) 2.9 /CMM (1.8-8.9); NEUTROPHILS % (AUTO) 51.2 % (43.0-81.0); PLATELET COUNT (AUTO) 192 /CMM (150-450); RED BLOOD CELL COUNT(AUTO) 4.38 MIL/uL (4.0-5.2); WHITE BLOOD COUNT (AUTO) 5.6 K/uL (4.3-11.0)
[2020-03-18 14:30] LABS: CALCIUM, SERUM 8.8 mg/dL (8.5-10.1); CARBON DIOXIDE 29 mmol/L (21-32); CHLORIDE 105 mmol/L (98-107); CREATININE 0.7 mg/dL (0.6-1.3); GLUCOSE 132 mg/dL (74-106); SODIUM SERUM 142 mmol/L (136-145); UREA NITROGEN, BLOOD 16 mg/dL (7-18)
[2020-03-18 14:37] LABS: ALANINE AMINOTRANSFERASE 20 U/L (12-78); ALBUMIN 3.8 g/dL (3.4-5.0); ALCOHOL, BLOOD 13 mg/dL (0-0); ALKALINE PHOSPHATASE 68 U/L (46-116); ASPARTATE AMINOTRANSFERASE 19 U/L (15-37); BILIRUBIN,DIRECT 0.1 mg/dL (0.0-0.2); BILIRUBIN,TOTAL 0.4 mg/dL (0.2-1.0); TOTAL PROTEIN, SERUM 7.8 g/dL (6.4-8.2)
[2020-03-18 14:41] LABS: ACETAMINOPHEN < 2 ug/ml (10-30); SALICYLATE 0.9 mg/dL (2.8-20.0)
--- NOTE | 2020-03-18 15:16 | NUR ---
MARTIN DELACRUZ CALLED FOR EVAL
--- NOTE | 2020-03-18 15:46 | NUR ---
patient resting, in bed, ambulatory with steady gait.
--- NOTE | 2020-03-18 15:46 | NUR ---
covid swab sent.
[2020-03-18] MEDS ORDERED: DIVA500T2 PO (16:41)
[2020-03-18] MEDS ORDERED: QUET100T PO (16:41)
--- NOTE | 2020-03-18 17:28 | NUR ---
Patient walking around the hallway. No distress noted.
--- NOTE | 2020-03-18 17:52 | NUR ---
REPORT GIVEN TO LUIS ALBERTO MERCHANT FOR TOMASA.
--- NOTE | 2020-03-18 18:00 | NUR ---
[facility], in stable condition.
[2020-03-18 19:30] VITALS: BP 112/70
[2020-03-18] MEDS ORDERED: MAG HYDROX/AL HYDROX/SIMETH 30 ML UDC PO PRN (20:00)
[2020-03-18] MEDS ORDERED: BLOOD SUGAR DIAGNOSTIC 1 EACH STRIP IN ONE (20:00)
[2020-03-18] MEDS ORDERED: ACETAMINOPHEN 325 MG TABLET PO PRN (20:00)
[2020-03-18] MEDS ORDERED: MAGNESIUM HYDROXIDE 30 ML UDC PO PRN (20:00)
--- NOTE | 2020-03-18 20:03 | NUR ---
ADMISSION NOTES: ADMITTED THIS 69Y/O FEMALE PATIENT ADMIT FROM [facility] ED / INTIALLY FROM [facility], ADMITTED TO GPS ON 515, GD , DUE TO AGGRESSIVE TOWARDS STAFF AND PATIENTS AND NOT ABLE TO BE REDIRECTED, PT. NON COMPLIANT WITH CARE ,UPON FACE TO FACE ASSESSMENT PATIENT IS A&O X 1 CONFUSED , DELUSIONAL, ANXIOUS ,PARANOID , DISORGNIZED TALKATIVE ,DISHELVED ,EASILY GETS AGITATED, NOT TO BE REDIRECTED , PACING IN HALLWAY DENIES SI /HI AT THIS TIME, PT. IS POOR HISTORIAN, POOR INSIGHT ,POOR JUDGEMENT , PT. REFUSED TO SIGNS ADMISSION CONSENT PAPERS , DUE TO MENTAL STATUS / CONFUSED, BOTH MD AWARE AND NOTIFIED OF THE ADMISSION, BELONGINGS CONTRABAND WERE DONE ,PT. RIGHTS DISCUSS BY CLINICAL STAFF PHARMACIST , PROVIDE THE PT. WITH HANDBOOK, AND MEDICATIONS GUIDE, ENVIRONMENTAL SAFETY CHECK DONE, ENCOURAGED PT. VERBALIZED ANY FEELING CONCERN TO STAFF, ORIENT TO UNIT POLICY, NO ACUTE DISTRESS NOTED,VITAL SIGNS WNL ,DENIES ANY PAIN AT THIS TIME,WILL CONTINUE TO MONITOR FOR Q15 SAFETY AND BEHAVIOR.
[2020-03-18 20:21] VITALS: BP 145/71
--- NOTE | 2020-03-18 20:30 | NUR ---
RN NOTES: PT. REFUSED INTIALLY ACCU CHECK , ENCOURAGED X3 , RISKS BENFITTS EXPLAINED, PT. STRONGLY REFUSED, AND PT. BEHAVIOR UNCOOPERTIVE , AGGRESSIVE AT HIS TIME , WILL CONTINUITY WITH CARE
--- NOTE | 2020-03-18 20:50 | NUR ---
RN NOTES: PT. REFUSED INTIALLY ACCU CHECK , ENCOURAGED X3 , RISKS BENFITTS EXPLAINED, PT. STRONGLY REFUSED, AND PT. BEHAVIOR UNCOOPERTIVE , AGGRESSIVE AT THIS TIME , WILL CONTINUITY WITH CARE.
[2020-03-18] MEDS: LORAZEPAM 0.5 MG TABLET PO PRN (21:18)
--- NOTE | 2020-03-18 21:19 | NUR ---
RN NOTES: ANXIETY PT. NOTED VERY ANXIOUS RESTLESS, PARANOID ,PACING IN HALLWAY , ATIVAN 0.5 MG PO PRN GIVEN PER MD ORDERS, WILL CONTINUE TO MONITOR.
--- NOTE | 2020-03-19 06:25 | NUR ---
RN NOTES: PT. RESTING IN HER ROOM , NO ACUTE DISTRESS/ CHANGES NOTED, ALL NEEDS ANTICIPATED, WILL CONTINUITY WITH CARE.
[2020-03-19 07:31] LABS: CREATININE 0.7 mg/dL (0.6-1.3)
[2020-03-19 07:40] LABS: CHOLESTEROL 236 mg/dL (<200); HDL CHOLESTEROL 52 mg/dL (40-60); LDL 174 mg/dL (0-99); TRIGLYCERIDES 102 mg/dL (30-150)
[2020-03-19 08:00] VITALS: BP 143/68
--- NOTE | 2020-03-19 09:00 | NUR ---
RN NOTE- PT CONFUSED PASSIVE IN AND OUT OF ROOM, WANDERING UNIT WITHDRAWN PO INTAKE GOOD NO BEHAVIORAL ISSUES AT PRESENT PARANOID
--- NOTE | 2020-03-19 11:30 | NUR ---
RN NOTE- PT STANDING BY DOOR OF UNIT IN CORNER. SEEMS TO BE AWOL RISK. NOT DIRECTABLE. SITS ON FLOOR WHEN REDIRECTION ATTEMPTED. PLACED IN AGNIESZKA CHAIR. STRUCK OUT AT STAFF. ATIVAN 0.5 MG GIVEN
[2020-03-19] MEDS: LORAZEPAM 0.5 MG TABLET PO PRN ×2 (11:34→18:38)
--- NOTE | 2020-03-19 12:00 | NUR ---
SNF CONTACT: SW contacted to [facility] (SNF) [address] [address] [facility] [address] [facility] [address] and spoke with Tala, dispatch coordinator who stated pt is able to return once stable for discharge.
[2020-03-19] MEDS: QUETIAPINE FUMARATE 25 MG TABLET PO SCH ×2 (12:45→21:40)
[2020-03-19] MEDS: DIVALPROEX SODIUM 250 MG TABLET.DR PO SCH ×2 (12:59→16:29)
--- NOTE | 2020-03-19 14:39 | NUR ---
CAREGIVER CONTACT: SW spoke with pts friend/caregiver Yumiko [phone] who provided SW with collateral information and discussed treatment and discharge planning. Per friend, she states that pt recently came from [place] on 09/12/19. She states that pts lives here and is under the care of a caregiver who provided 24 hour care to him as he suffered 2 strokes and is blind. She states that pt came with the intention to visit her but when she arrived she was very confused and agitated and his caregiver refused to allow pt to stay with her. Pt was admitted to [facility] in October 2019 and has been living in [facility] since her discharge. Caregiver states that she will remain pts emergency contact and wishes for pt to return to [facility] once stable. She states that pts children are not involved with pts care.
--- NOTE | 2020-03-19 15:13 | NUR ---
INITIAL DISCHARGE PLAN: Pt will return to [facility] ([facility]) [address] [address] [facility] [address] . MARCO contacted to [facility] ([facility]) [address] [address] [address] and spoke with Tala neighborhood coordinator who stated pt is able to return once stable for discharge. MARCO will help form a safe and proper discharge in collaboration with .
[2020-03-19 16:00] VITALS: BP 114/74
--- NOTE | 2020-03-19 18:38 | NUR ---
RN NOTE- PT WANDERING INTO OTHER PT ROOMS, THROWING BLANKETS PILLOWS ON FLOOR POSTURING AND ACTING OUT. PLACED IN AGNIESZKA CHAIR. PT BANGING ON TRAY AND KICKING. ATIVAN 0.5 MG GIVEN
--- NOTE | 2020-03-19 18:46 | NUR ---
RN NOTE- DR SAINI ORDERED SEROQUEL 12.5 MG X ONE DOSE NOW. COMPLIED
[2020-03-19] MEDS ORDERED: QUETIAPINE FUMARATE 25 MG TABLET PO ONE (19:00)
[2020-03-19 20:07] VITALS: BP 140/71
[2020-03-20 08:00] VITALS: BP 144/98
[2020-03-20] MEDS: DIVALPROEX SODIUM 250 MG TABLET.DR PO SCH ×3 (09:31→17:03)
[2020-03-20] MEDS: QUETIAPINE FUMARATE 25 MG TABLET PO SCH ×2 (09:31→21:02)
[2020-03-20] MEDS: LORAZEPAM 0.5 MG TABLET PO PRN (15:08)
--- NOTE | 2020-03-20 15:19 | NUR ---
pt. agitated and crying,attempted to give her ativan.pt. refusing.attempted to open psych unit door.rn observing closely.
[2020-03-20 16:00] VITALS: BP 133/79
[2020-03-20 20:02] VITALS: BP 108/74
[2020-03-20 20:28] VITALS: BP 113/59
[2020-03-21 08:00] VITALS: BP 122/77
[2020-03-21] MEDS: QUETIAPINE FUMARATE 25 MG TABLET PO SCH (09:15)
[2020-03-21] MEDS: DIVALPROEX SODIUM 250 MG TABLET.DR PO SCH ×3 (09:15→16:57)
[2020-03-21 16:00] VITALS: BP 142/76
[2020-03-21 20:00] VITALS: BP 138/85
[2020-03-21] MEDS: LORAZEPAM 0.5 MG TABLET PO PRN (20:05)
--- NOTE | 2020-03-21 20:05 | NUR ---
GPS RN NOTE: ANXIETY PATIENT NOTED TO BE VERY ANXIOUS, RESTLESS, HYPERVERBAL, PRN ATIVAN 0.5 MG 1 TAB PO GIVEN. WILL MONITOR CLOSELY FOR ANY CHANGES
[2020-03-21 20:17] VITALS: BP 138/85
[2020-03-21] MEDS ORDERED: QUETIAPINE FUMARATE 25 MG TABLET PO SCH (22:00)
--- NOTE | 2020-03-22 06:34 | NUR ---
GPS RN NOTE PATIENT SLEPT WELL AT NIGHT AFTER ATIVAN WAS GIVEN. NO CHANGES NOTED.
[2020-03-22] MEDS: QUETIAPINE FUMARATE 25 MG TABLET PO SCH ×2 (07:48→13:24)
[2020-03-22] MEDS: DIVALPROEX SODIUM 250 MG TABLET.DR PO SCH ×3 (07:48→17:54)
[2020-03-22 08:00] VITALS: BP 111/76
--- NOTE | 2020-03-22 15:07 | NUR ---
RN-CO: Patient is non redirectable, opening doors to AWOL, she believes that she needs to take care of her small children. Agitated and refused PO ativan. Dr Reno ordered Zyprexa 3 mg IM once. noted.
--- NOTE | 2020-03-22 15:23 | NUR ---
INDIVIDUAL INTERVENTION: Pt was irritable and asked SW to call a taxi for her because she wanted to leave already. Pt later eloped from the unit. Pt ran after an MD and was able to exit the unit, when staff attempted to bring pt back pt became aggressive and began crying and was yelling. Pt required IM for agitation.
[2020-03-22] MEDS ORDERED: OLANZAPINE 10 MG VIAL IM ONE (15:30)
[2020-03-22 16:00] VITALS: BP 114/76
[2020-03-22] MEDS: LORAZEPAM 0.5 MG TABLET PO PRN (20:02)
--- NOTE | 2020-03-22 20:04 | NUR ---
RN NOTES: ANXIETY PT. NOTED VERY ANXIOUS, RESTLESS, HYPERVERBAL, PARANOID ,PACING IN HALLWAY , ATIVAN 0.5 MG PO PRN GIVEN PER MD ORDERS, WILL CONTINUE TO MONITOR.
[2020-03-22 20:20] VITALS: BP 111/54
[2020-03-22 21:25] VITALS: BP 118/70
[2020-03-22] MEDS: QUETIAPINE FUMARATE 100 MG TABLET PO SCH (21:25)
[2020-03-23 06:46] LABS: BASOPHILS % (AUTO) 0.9 % (0.0-2.0); EOSINOPHILS % (AUTO) 3.1 % (0.0-6.0); HEMATOCRIT 42 % (33-45); HEMOGLOBIN 13.5 g/dL (11.5-14.8); LYMPHOCYTES # (AUTO) 2.1 /CMM (0.8-4.8); MEAN CORPUSCULAR HGB CONC 32 g/dl (31.0-36.0); MEAN CORPUSCULAR VOLUME 94 fL (82-100); MONOCYTES # (AUTO) 0.5 /CMM (0.1-1.30); NEUTROPHILS # (AUTO) 2.2 /CMM (1.8-8.9); PLATELET COUNT (AUTO) 184 /CMM (150-450); RED BLOOD CELL COUNT(AUTO) 4.48 MIL/uL (4.0-5.2); WHITE BLOOD COUNT (AUTO) 5.1 K/uL (4.3-11.0)
[2020-03-23 07:05] LABS: ALANINE AMINOTRANSFERASE 16 U/L (12-78); ALBUMIN 3.3 g/dL (3.4-5.0); ALKALINE PHOSPHATASE 64 U/L (46-116); ASPARTATE AMINOTRANSFERASE 14 U/L (15-37); BILIRUBIN,TOTAL 0.2 mg/dL (0.2-1.0); CALCIUM, SERUM 8.7 mg/dL (8.5-10.1); CARBON DIOXIDE 28 mmol/L (21-32); CHLORIDE 105 mmol/L (98-107); CREATININE 0.5 mg/dL (0.6-1.3); GLUCOSE 94 mg/dL (74-106); POTASSIUM 4.1 mmol/L (3.5-5.1); SODIUM SERUM 141 mmol/L (136-145); TOTAL PROTEIN, SERUM 6.9 g/dL (6.4-8.2); UREA NITROGEN, BLOOD 14 mg/dL (7-18)
[2020-03-23 08:00] VITALS: BP 110/49
[2020-03-23] MEDS: DIVALPROEX SODIUM 250 MG TABLET.DR PO SCH ×3 (09:25→17:21)
[2020-03-23] MEDS: QUETIAPINE FUMARATE 25 MG TABLET PO SCH ×2 (09:25→13:00)
[2020-03-23 09:46] LABS: VALPROIC ACID 69 ug/mL (50-100)
[2020-03-23 16:00] VITALS: BP 97/50
--- NOTE | 2020-03-23 18:00 | NUR ---
wandering from rm. to rm.very confused.redirectable and cooperative.
[2020-03-23 20:20] VITALS: BP 128/40
[2020-03-23] MEDS: QUETIAPINE FUMARATE 100 MG TABLET PO SCH (21:28)
[2020-03-24 08:00] VITALS: BP 114/73
[2020-03-24] MEDS: DIVALPROEX SODIUM 250 MG TABLET.DR PO SCH ×3 (08:12→16:26)
[2020-03-24] MEDS: QUETIAPINE FUMARATE 25 MG TABLET PO SCH ×3 (08:12→16:27)
[2020-03-24] MEDS: LORAZEPAM 0.5 MG TABLET PO PRN (15:55)
[2020-03-24 16:00] VITALS: BP 142/83
--- NOTE | 2020-03-24 16:00 | NUR ---
GPS/RN ATIVAN 0.5MG PO GIVEN FOR ANXIETY
[2020-03-24 20:13] VITALS: BP 131/59
[2020-03-24] MEDS: QUETIAPINE FUMARATE 100 MG TABLET PO SCH (21:20)
[2020-03-24] MEDS: TEMAZEPAM 7.5 MG CAPSULE PO PRN (22:42)
--- NOTE | 2020-03-24 22:42 | NUR ---
GPS RN NOTE: INSOMNIA PT. C/O UNABLE TO SLEEP. ADMINISTERED RESTORIL 7.5 MG PO PRN ORDERED. WILL CONTINUE TO MONITOR FOR SAFETY AND BEHAVIOR.
[2020-03-25] MEDS: LORAZEPAM 0.5 MG TABLET PO PRN (00:47)
--- NOTE | 2020-03-25 00:47 | NUR ---
GPS RN NOTE: ANXIETY PT. APPEARS TO BE ANXIOUS. ADMINISTERED ATIVAN 0.5 MG PO PRN ORDERED. WILL CONTINUE TO MONITOR FOR SAFETY AND BEHAVIOR.
[2020-03-25 08:00] VITALS: BP 110/58
[2020-03-25] MEDS: QUETIAPINE FUMARATE 25 MG TABLET PO SCH ×2 (08:15→16:41)
[2020-03-25] MEDS: DIVALPROEX SODIUM 250 MG TABLET.DR PO SCH ×3 (08:15→16:41)
[2020-03-25 16:00] VITALS: BP 120/60
[2020-03-25 19:58] VITALS: BP 119/69
[2020-03-25] MEDS: QUETIAPINE FUMARATE 100 MG TABLET PO SCH (21:14)
[2020-03-26 08:00] VITALS: BP 121/73
[2020-03-26] MEDS: QUETIAPINE FUMARATE 25 MG TABLET PO SCH ×2 (08:22→16:31)
[2020-03-26] MEDS: DIVALPROEX SODIUM 250 MG TABLET.DR PO SCH ×3 (08:22→16:31)
[2020-03-26 16:00] VITALS: BP 120/78
[2020-03-26 20:58] VITALS: BP 133/70
[2020-03-26] MEDS: QUETIAPINE FUMARATE 100 MG TABLET PO SCH (21:09)
[2020-03-27 08:00] VITALS: BP 123/56
[2020-03-27] MEDS: QUETIAPINE FUMARATE 25 MG TABLET PO SCH ×3 (08:56→16:28)
[2020-03-27] MEDS: DIVALPROEX SODIUM 250 MG TABLET.DR PO SCH ×3 (08:56→16:28)
[2020-03-27 16:00] VITALS: BP 124/70
[2020-03-27 20:46] VITALS: BP 128/89
[2020-03-27] MEDS: QUETIAPINE FUMARATE 100 MG TABLET PO SCH (21:06)
[2020-03-27 22:33] VITALS: BP 129/79
[2020-03-27] MEDS: TEMAZEPAM 7.5 MG CAPSULE PO PRN (22:37)
--- NOTE | 2020-03-27 22:40 | NUR ---
GPS RN NOTES: INSOMNIA UPON DOING ROUNDS, PT PACING IN BEDROOM. PT STATED IN CROATIAN SHE CAN NOT SLEEP. OFFERED RESTORIL 7.5 MG PO PRN ORDERED. VITALS TAKEN WNL. PT TOLERATED MEDICATION WELL. CONTINUE TO MONITOR.
[2020-03-28 08:00] VITALS: BP 147/75
[2020-03-28] MEDS: DIVALPROEX SODIUM 250 MG TABLET.DR PO SCH ×3 (08:19→16:33)
[2020-03-28] MEDS: QUETIAPINE FUMARATE 25 MG TABLET PO SCH ×3 (08:19→16:33)
--- NOTE | 2020-03-28 09:50 | NUR ---
MARCO Brief Individual Counseling: SW met with patient to provide brief individual counseling. Patient was sleeping at this time and was not easily aroused.
[2020-03-28 16:00] VITALS: BP 122/60
[2020-03-28] MEDS: LORAZEPAM 0.5 MG TABLET PO PRN (19:54)
--- NOTE | 2020-03-28 19:54 | NUR ---
GPS RN NOTE: ANXIETY PATIENT IS ANXIOUS, RESTLESS & HYPERVERBAL, EASILY AGITATED WHEN REDIRECTED. PRN ATIVAN 0.5 MG 1 TAB PO GIVEN. WILL CONTINUE TO MONITOR FOR EFFECTIVENESS.
[2020-03-28 20:00] VITALS: BP 149/88
[2020-03-28 20:07] VITALS: BP 149/88
[2020-03-28] MEDS: QUETIAPINE FUMARATE 100 MG TABLET PO SCH (21:07)
[2020-03-28 21:10] VITALS: BP 135/76
--- NOTE | 2020-03-29 06:02 | NUR ---
GPS RN NOTE PATIENT SLEPT WELL AT NIGHT. NO BEHAVIOR EPISODE NOTED. REDIRECTABLE.
[2020-03-29 06:38] LABS: BASOPHILS % (AUTO) 0.9 % (0.0-2.0); EOSINOPHILS % (AUTO) 3.7 % (0.0-6.0); HEMATOCRIT 41 % (33-45); HEMOGLOBIN 13.1 g/dL (11.5-14.8); LYMPHOCYTES # (AUTO) 2.2 /CMM (0.8-4.8); LYMPHOCYTES % (AUTO) 43.7 % (20.0-44.0); MEAN CORPUSCULAR HGB CONC 32 g/dl (31.0-36.0); MEAN CORPUSCULAR VOLUME 93 fL (82-100); MONOCYTES # (AUTO) 0.5 /CMM (0.1-1.30); NEUTROPHILS # (AUTO) 2.2 /CMM (1.8-8.9); NEUTROPHILS % (AUTO) 42.7 % (43.0-81.0); PLATELET COUNT (AUTO) 203 /CMM (150-450); WHITE BLOOD COUNT (AUTO) 5.1 K/uL (4.3-11.0)
[2020-03-29 07:05] LABS: ALBUMIN 3.2 g/dL (3.4-5.0); BILIRUBIN,TOTAL 0.2 mg/dL (0.2-1.0); CALCIUM, SERUM 8.7 mg/dL (8.5-10.1); CREATININE 0.6 mg/dL (0.6-1.3); POTASSIUM 4.4 mmol/L (3.5-5.1); TOTAL PROTEIN, SERUM 6.9 g/dL (6.4-8.2)
[2020-03-29 08:00] VITALS: BP 146/79
[2020-03-29] MEDS: QUETIAPINE FUMARATE 25 MG TABLET PO SCH ×3 (09:50→18:19)
[2020-03-29] MEDS: DIVALPROEX SODIUM 250 MG TABLET.DR PO SCH ×3 (09:50→18:19)
[2020-03-29 16:00] VITALS: BP 127/91
--- NOTE | 2020-03-29 18:00 | NUR ---
wanders about unit,and very confused but cooperative.
[2020-03-29 19:43] VITALS: BP 131/90
[2020-03-29] MEDS: QUETIAPINE FUMARATE 100 MG TABLET PO SCH (21:16)
[2020-03-29 22:00] VITALS: BP 132/78
--- NOTE | 2020-03-30 06:31 | NUR ---
RN NOTES: PT. RESTING IN HER ROOM , NO ACUTE DISTRESS, NO CHANGES NOTED, ALL NEEDS ANTICIPATED, WILL CONTINUITY WITH CARE.
[2020-03-30] MEDS: DIVALPROEX SODIUM 250 MG TABLET.DR PO SCH ×3 (07:45→16:12)
[2020-03-30] MEDS: QUETIAPINE FUMARATE 25 MG TABLET PO SCH ×3 (07:45→16:12)
[2020-03-30 08:00] VITALS: BP 119/72
[2020-03-30 16:00] VITALS: BP 131/78
[2020-03-30 20:44] VITALS: BP 152/83
[2020-03-30 21:20] VITALS: BP 130/67
[2020-03-30] MEDS: QUETIAPINE FUMARATE 100 MG TABLET PO SCH (21:21)
[2020-03-31 08:00] VITALS: BP 99/59
[2020-03-31] MEDS: QUETIAPINE FUMARATE 25 MG TABLET PO SCH ×3 (08:15→16:50)
[2020-03-31] MEDS: DIVALPROEX SODIUM 250 MG TABLET.DR PO SCH ×3 (08:15→16:50)
[2020-03-31 16:00] VITALS: BP 140/84
[2020-03-31 20:45] VITALS: BP 154/98
[2020-03-31] MEDS: QUETIAPINE FUMARATE 100 MG TABLET PO SCH (21:27)
[2020-04-01 08:00] VITALS: BP 158/64
[2020-04-01] MEDS: QUETIAPINE FUMARATE 25 MG TABLET PO SCH (08:31)
[2020-04-01] MEDS: DIVALPROEX SODIUM 250 MG TABLET.DR PO SCH (08:31)
--- NOTE | 2020-04-01 09:18 | NUR ---
DISCHARGE NOTE: Pt will be discharged at 12:00pm via [facility] to [facility] ([facility] [address] [address] . Pts friend/caregiver Yumiko [phone] has been notified and agrees with discharge plan. Pts mood is euthymic with congruent affect. Pt denied visual/auditory hallucinations and denied suicidal/homicidal ideation. Pt presents alert and oriented x1, pt is appropriately dressed and groomed. Pt will be under the care of Psychiatrist: Dr. Abby Reno [address], [place] [address] and [employer] Crewmember: Dr. Hunter Cabrera Address: [address], [place] [address] . The multidisciplinary exit care form was done, printed, signed, and given to the patient.
--- NOTE | 2020-04-01 09:37 | NUR ---
FAMILY CONTACT: MARCO contacted Pts friend Yumiko [phone] to notify her of pts discharge on this present day. Friend agreed with discharge plan.
--- NOTE | 2020-04-01 11:31 | NUR ---
RN NOTE: REPORT GIVEN TO ARNULFO MERCHANT AT [facility].
--- NOTE | 2020-04-01 12:25 | NUR ---
PROSTHETICS LAB TECHNICIAN NOTE: PT DISCHARGED TO [facility] IN STABLE CONDITION. A+OX1, VSS, AFEBRILE, NO SOB. PT DENIES SI AT TIME OF DISCHARGE. PT IS CONFUSED AND DISCORIENTED. PT COMPLIANT WITH MEDICATONS AND PLAN OF CARE. REPORT GIVEN TO ARNULFO MERCHANT. PSYCHIATRIC CARE PLAN COMPLETE. MEDICAL CARE PLAN TO CONTINUE AT SNF. SKIN INTACT AT ADMIT AND DISCHARGE. PT UNABLE TO SIGN DISCHARGE PAPERWORK DUE TO CONFUSION AND DISORIENTATION. PT TRANSPORTED VIA GURNEY WITH EMS PRESENT.
== END 2020-04-01 12:25 | DRG 885 ==
LOC: ER 13:29 → GPS 17:13
PROVIDERS: ADMIT Psychiatry & Neurology Psychosomatic Medicine
DX: F31.64 Bipolar disorder, current episode mixed, severe, with psychotic features (principal); F01.50 Vascular dementia, unspecified severity, without behavioral disturbance, psychotic disturbance, mood disturbance, and anxiety; E44.0 Moderate protein-calorie malnutrition; F29 Unspecified psychosis not due to a substance or known physiological condition; F41.9 Anxiety disorder, unspecified; E88.09 Other disorders of plasma-protein metabolism, not elsewhere classified; Z68.30 Body mass index [BMI] 30.0-30.9, adult; G89.29 Other chronic pain; Z91.19 Patient's noncompliance with other medical treatment and regimen
CPT/HCPCS: 36415; 80048-TC; 80053-TC; 80061-TC; 80076-TC; 80164-TC; 80305; 81000-TC; 82565-TC; 85025-TC; 87081-TC; C9803-CS; G0480; J3490

== ENCOUNTER 2021-04-23 10:48 | Inpatient (IN) | payer MEDICARE, OTHER ==
[~2021-04-23] VITALS: Ht 147.3 cm; Wt 74.8 kg
[~2021-04-23 10:48] MED LIST changes: -HYDR-4384 PO; -LORA-259 PO; -ONDA4VIA52 IVP; -QUET25TA PO; -ZOLP5TAB8 PO
--- NOTE | 2021-04-23 11:12 | NUR ---
TO ER BED 1, [id number] C/O NECK, BUE, AND BACK PAIN S/P GLF, KNEE PAIN ON PALPATION, AAOX4, BREATHING EVEN AND NON LABORED, ATTCHED TO MONITOR AND CHANGED TO A GOWN
[2021-04-23] MEDS ORDERED: QUET100T PO (11:25)
[2021-04-23] MEDS ORDERED: QUERCETIN PO (11:25)
[2021-04-23] MEDS ORDERED: DIVA250T4 PO (11:25)
[2021-04-23] MEDS ORDERED: QUET25TA PO (11:25)
[2021-04-23] MEDS ORDERED: MAG30ORA PO (11:25)
[2021-04-23] MEDS ORDERED: ACET-868 PO (11:25)
[2021-04-23] MEDS ORDERED: MAGN400O6 PO (11:25)
--- NOTE | 2021-04-23 11:35 | NUR ---
SALINE LOCK ESTABLISHED, BLOOD DRAWN AND SENT TO LAB
--- NOTE | 2021-04-23 11:43 | NUR ---
UNABLE TO GIVE URINE AT THIS TIME
[2021-04-23 12:05] LABS: BASOPHILS % (AUTO) 0.6 % (0.0-2.0); EOSINOPHILS % (AUTO) 1.6 % (0.0-6.0); HEMATOCRIT 41 % (33-45); HEMOGLOBIN 13.5 g/dL (11.5-14.8); LYMPHOCYTES # (AUTO) 1.8 K/uL (0.8-4.8); LYMPHOCYTES % (AUTO) 29.3 % (20.0-44.0); MEAN CORPUSCULAR HGB CONC 33 g/dl (31.0-36.0); MEAN CORPUSCULAR VOLUME 91 fL (82-100); MONOCYTES # (AUTO) 0.5 K/uL (0.1-1.30); MONOCYTES % (AUTO) 8.1 % (2.0-12.0); NEUTROPHILS # (AUTO) 3.8 K/uL (1.8-8.9); NEUTROPHILS % (AUTO) 60.4 % (43.0-81.0); PLATELET COUNT (AUTO) 213 K/uL (150-450); RED BLOOD CELL COUNT(AUTO) 4.52 MIL/uL (4.0-5.2); WHITE BLOOD COUNT (AUTO) 6.2 K/uL (4.3-11.0)
[2021-04-23 12:34] LABS: CALCIUM, SERUM 8.6 mg/dL (8.5-10.1); CARBON DIOXIDE 28 mmol/L (21-32); CHLORIDE 104 mmol/L (98-107); CREATININE 0.6 mg/dL (0.6-1.3); GLUCOSE 98 mg/dL (74-106); POTASSIUM 4.4 mmol/L (3.5-5.1); SODIUM SERUM 141 mmol/L (136-145); UREA NITROGEN, BLOOD 15 mg/dL (7-18)
[2021-04-23 12:40] LABS: ALANINE AMINOTRANSFERASE 20 U/L (12-78); ALBUMIN 3.5 g/dL (3.4-5.0); ALKALINE PHOSPHATASE 78 U/L (46-116); ASPARTATE AMINOTRANSFERASE 9 U/L (15-37); BILIRUBIN,DIRECT 0.1 mg/dL (0.0-0.2); BILIRUBIN,TOTAL 0.1 mg/dL (0.2-1.0); TOTAL PROTEIN, SERUM 7.6 g/dL (6.4-8.2)
--- NOTE | 2021-04-23 12:48 | NUR ---
[facility] WANT[facility] AN UPDATE RE PT STATUS
--- NOTE | 2021-04-23 13:01 | NUR ---
PAGED [facility].
--- NOTE | 2021-04-23 13:04 | NUR ---
CALLED NURSING SUP FOR TELE BED.
--- NOTE | 2021-04-23 14:37 | NUR ---
CALLED [employer] ADVIS[employer] FOR EVAL. ETA 1 HOUR TO 1 HOUR AND A HALF.
--- NOTE | 2021-04-23 14:46 | NUR ---
NURSING SUP GAVE [id number].
--- NOTE | 2021-04-23 15:10 | NUR ---
REPORT GIVEN TO MAYUR GONZALEZ FOR [facility]
--- NOTE | 2021-04-23 15:18 | NUR ---
URINE COLLECTED AND SENT TO LAB
[2021-04-23 15:49] LABS: BILIRUBIN,URINE NEGATIVE (NEGATIVE); COLOR,URINE YELLOW (YELLOW); LEUKOCYTE ESTERASE ,URINE MODERATE (NEGATIVE); NITRITE, URINE NEGATIVE (NEGATIVE); PROTEIN,URINE NEGATIVE (NEGATIVE); UGLUCOSE NEGATIVE (NEGATIVE); UROBILINOGEN,URINE 0.2 EU/dL (0.2)
[2021-04-23 15:53] LABS: BACTERIA,URINE Few /HPF (None Seen); SQUAMOUS EPITHELIAL CELL,UR Few /HPF (None Seen)
--- NOTE | 2021-04-23 17:58 | NUR ---
RN-CO: PAGED DR FOLEY AND GAVE ADMITTING ORDERS.
[2021-04-23] MEDS ORDERED: MAGNESIUM HYDROXIDE 30 ML UDC PO PRN (18:00)
[2021-04-23] MEDS ORDERED: BLOOD SUGAR DIAGNOSTIC 1 EACH STRIP IN ONE ×2 (18:00→22:00)
[2021-04-23] MEDS ORDERED: ACETAMINOPHEN 325 MG TABLET PO PRN (18:00)
[2021-04-23] MEDS ORDERED: MAG HYDROX/AL HYDROX/SIMETH 30 ML UDC PO PRN (18:00)
[2021-04-23] MEDS ORDERED: ZOLPIDEM TARTRATE 5 MG TABLET PO PRN (18:00)
--- NOTE | 2021-04-23 19:30 | NUR ---
GPS ADMISSION NOTE, RECEIVED PATIENT FROM [facility]/ [facility]. PATIENT ARRIVED ON THIS UNIT AT 1741 VIA STRETCHER WITH 2 TRAP SETTER ESCORTS. PATIENT ADMITTED ON A 5150 HOLD FOR GD. PER HOLD PATIENT HAS BEEN AGITATED, VERBALLY ABUSIVE, AND TRYING TO WALK OUT OF [facility]. THE 5150 WAS REVIEWED AND THE DOCUMENTATION IN THE 5150 HOLD APPEARS TO REFLECT THE PRESENTATION OF THE PATIENT. UPON FACE TO FACE ASSESSMENT PATIENT IS NOTED TO BEING CONFUSED, DISHEVELED, DISORGANIZED, UNCOOPERATIVE, AND NEEDS REDIRECTION. PATIENT IS CURRENTLY LYING IN BED AWAKE, HAS NO S/S OR COMPLAINTS OF PAIN. PATIENT IS DISPLAYING NO S/S OF APPARENT DISTRESS. PATIENT BREATHING IS UNLABORED WITH EQUAL RISE AND FALL OF THE CHEST. PATIENT IS ALERT AND ORIENTATED X 1 ON ROOM AIR. PATIENT ASSISTED WITH TURING AND REPOSITIONING Q2HR AND PRN FOR COMFORT AND CIRCULATION. PATIENT HAS NO NEEDS AT THIS TIME. PATIENT DENIES SUICIDE IDEATIONS AND HOMICIDAL IDEATIONS AT THIS TIME. PATIENT REFUSED TO SIGNS ANY PAPER WORK AND THINKS THIS IS ALL A MISTAKE. PATIENT ADVISED OF HER HOLD AND PATIENT RIGHTS BOOKLET GIVEN. PATIENT IS UNDER THE PSYCHIATRIC CARE OF DR. FOLEY AND THE MEDICAL CARE OF DR DIEGO. PATIENT BELONGINGS WERE INVENTORIED AND CHECKED FOR CONTRABAND. ALL CONTRABAND REMOVED AND STORED IN PATIENT HALLWAY LOCKER. PATIENT ADVANCED DIRECTIVES PREFERENCE, IMMUNIZATIONS QUESTIONER, NECESSARY PAPERWORK COMPLETED. PATIENT REFUSED SKIN ASSESSMENT. PATIENT ORIENTATED TO ROOM, FLOOR, AND STAFF WITH ALL QUESTIONS ANSWERED. PATIENT EDUCATED ON THE USE OF THE CALL GONZALEZ. PATIENT BED SIDE RAILS ARE UP X 2 FOR SAFETY. PATIENT BED IS LOCKED, LOW AND I WILL CONTINUE TO MONITOR THIS PATIENT Q 15 MIN WITH THE HELP OF STAFF TO MAINTAIN SAFETY.
--- NOTE | 2021-04-23 19:40 | NUR ---
GPS RN NOTE. RECEIVED PATIENT SLEEPING IN BED. NO S/S OF PAIN AT THIS TIME. PATIENT SHOWS NO S/S OF DISTRESS. PATIENT RESPIRATIONS ARE UNLABORED AND EQUAL RISE/FALL OF CHEST. PATIENT APPEARS ALERT ORIENTED X3. PATIENT IS DEMANDING AND SUSPICIOUS AT TIMES, BUT IS MED COMPLIANT. 2 SIDE RAILS ARE UP AND CALL GONZALEZ IS WITHIN REACH. BED LOCKED AND LOW. WILL CONTINUE TO MONITOR Q15 MINUTES FOR SAFETY.
[2021-04-23 20:00] VITALS: BP 152/82
[2021-04-24] MEDS ORDERED: MAGNESIUM HYDROXIDE 30 ML UDC PO PRN
[2021-04-24] MEDS ORDERED: MAG HYDROX/AL HYDROX/SIMETH 30 ML UDC PO PRN
[2021-04-24] MEDS ORDERED: ACETAMINOPHEN 325 MG TABLET PO PRN
[2021-04-24 08:00] VITALS: BP 123/67
[2021-04-24] MEDS: CALCIUM CARB 600MG /VIT D 1 EACH TABLET PO SCH (08:22)
[2021-04-24] MEDS: LORAZEPAM 0.5 MG TABLET PO PRN ×2 (08:22→22:48)
[2021-04-24] MEDS: NITROFURANTOIN/NITROFURAN MONOHYDRATE 100 MG CAPSULE PO SCH ×2 (08:22→21:03)
--- NOTE | 2021-04-24 08:25 | NUR ---
RN-NOTES NOTED PATIENT SITTING ON THE FLOOR,UPON INVESTIGATION WITH THE HELP OF PERSIAN LANGUAGE STAFF . PATIENT STATED " I DON'T HAVE A CHAIR TO SIT SO I SIT ON THE FLOOR AND I'M GOING TO THE [facility] TODAY."PATIENT IS HYPERVERBAL,VERY ANXIOUS AND CONFUSED. REDIRECTED AND REORIENTED PATIENT. TRUMPET PLAYER AND ONE TREATMENT COORDINATOR STAFF ASSISTED PATIENT TO GET UP AND DIRECTED TO HER ROOM WITH STEADY GAIT, NO COMPLAIN OF PAIN OR ANY DISCOMFORT NOTED. ATIVAN 1MG P.O GIVEN PRN ORDER. WILL CONT. MONITORING FOR SAFETY AND BEHAVIOR.
[2021-04-24 08:50] LABS: ALBUMIN 3.9 g/dL (3.4-5.0); BILIRUBIN,TOTAL 0.4 mg/dL (0.2-1.0); CALCIUM, SERUM 8.7 mg/dL (8.5-10.1); CREATININE 0.6 mg/dL (0.6-1.3); POTASSIUM 3.8 mmol/L (3.5-5.1); TOTAL PROTEIN, SERUM 8.3 g/dL (6.4-8.2)
[2021-04-24] MEDS ORDERED: Medication Not On Formulary EA ([Quercetin] 500 MG) PO SCH (09:00)
--- NOTE | 2021-04-24 09:30 | NUR ---
RN-NOTES PATIENT IN THE DAY ROOM SITTING IN THE CHAIR CALM,NO ACUTE DISTRESS NOTED.
--- NOTE | 2021-04-24 12:01 | NUR ---
MARCO Initial Discharge Plan: Patient was from [facility] [address] [place] [address]; ([phone]). Pt stated that she does not have any family that is involved in her care. MARCO contacted Tala amado to gather collateral and she stated pt is welcomed back upon dc.
--- NOTE | 2021-04-24 12:02 | NUR ---
MARCO Family Contact: MARCO contacted pt's son Yusef ([phone]) who speaks Turkish but understand Czech minimally. MARCO discussed treatment and discharge plan. MARCO explained pt will return back to [facility] when stable, he was agreeable.
--- NOTE | 2021-04-24 12:20 | NUR ---
Treatment Plan: Pt appeared suspicious and confused. Pt refused to sign and was unable to follow directions or understand.
[2021-04-24] MEDS ORDERED: DIVALPROEX SODIUM 250 MG TABLET.DR PO SCH (13:00)
[2021-04-24] MEDS: QUETIAPINE FUMARATE 25 MG TABLET PO SCH ×2 (13:27→17:41)
[2021-04-24] MEDS: DIVALPROEX SODIUM 250 MG TABLET.DR PO SCH ×2 (13:27→17:41)
[2021-04-24 16:00] VITALS: BP 114/64
[2021-04-24 20:00] VITALS: BP 110/75
[2021-04-24] MEDS ORDERED: QUETIAPINE FUMARATE 100 MG TABLET PO SCH (22:00)
--- NOTE | 2021-04-24 22:48 | NUR ---
GPS-RN NOTES: ANXIETY PATIENT IS ANXIOUS AND RESTLESS. PRN ATIVAN 1MG PO GIVEN ORDERED. WILL CONTINUE TO MONITOR FOR PATIENT'S SAFETY.
[2021-04-25 08:00] VITALS: BP 110/62
[2021-04-25] MEDS: NITROFURANTOIN/NITROFURAN MONOHYDRATE 100 MG CAPSULE PO SCH ×2 (09:58→21:37)
[2021-04-25] MEDS: DIVALPROEX SODIUM 250 MG TABLET.DR PO SCH ×4 (09:58→21:29)
[2021-04-25] MEDS: QUETIAPINE FUMARATE 25 MG TABLET PO SCH ×4 (09:59→22:21)
[2021-04-25] MEDS: CALCIUM CARB 600MG /VIT D 1 EACH TABLET PO SCH (09:59)
--- NOTE | 2021-04-25 13:52 | NUR ---
Individual Therapy: SW met with patient to conduct brief therapy on patient's presenting problem disorganized thought content. Patient is very confused and disorganized. Patient blankly stares and does not respond. SW unable to conduct therapy at this time.
[2021-04-25 16:00] VITALS: BP 119/71
[2021-04-25 20:07] VITALS: BP 114/67
[2021-04-25] MEDS: QUETIAPINE FUMARATE 100 MG TABLET PO SCH (22:20)
[2021-04-26 08:00] VITALS: BP 137/70
[2021-04-26] MEDS: DIVALPROEX SODIUM 250 MG TABLET.DR PO SCH ×4 (08:08→20:37)
[2021-04-26] MEDS: CALCIUM CARB 600MG /VIT D 1 EACH TABLET PO SCH (08:08)
[2021-04-26] MEDS: QUETIAPINE FUMARATE 25 MG TABLET PO SCH ×4 (08:09→21:24)
[2021-04-26] MEDS: NITROFURANTOIN/NITROFURAN MONOHYDRATE 100 MG CAPSULE PO SCH ×2 (09:41→20:37)
[2021-04-26 16:00] VITALS: BP 143/95
--- NOTE | 2021-04-26 16:18 | NUR ---
RN-NOTES DR. DIEGO SEEN THE PATIENT WITH VERBAL ORDER OF [facility].NOTED AND CARRIED OUT.
[2021-04-26 19:59] VITALS: BP 111/84
[2021-04-26 20:45] LABS: BILIRUBIN,URINE NEGATIVE (NEGATIVE); COLOR,URINE YELLOW (YELLOW); LEUKOCYTE ESTERASE ,URINE MODERATE (NEGATIVE); NITRITE, URINE NEGATIVE (NEGATIVE); PROTEIN,URINE NEGATIVE (NEGATIVE); UGLUCOSE NEGATIVE (NEGATIVE); UROBILINOGEN,URINE 0.2 EU/dL (0.2)
[2021-04-26 20:50] LABS: BACTERIA,URINE 1+ /HPF (None Seen); SQUAMOUS EPITHELIAL CELL,UR Few /HPF (None Seen); WBC,URINE 21-50 /HPF (0-3)
[2021-04-26] MEDS: QUETIAPINE FUMARATE 100 MG TABLET PO SCH (21:24)
[2021-04-27 08:00] VITALS: BP 109/63
[2021-04-27] MEDS: CALCIUM CARB 600MG /VIT D 1 EACH TABLET PO SCH (08:17)
[2021-04-27] MEDS: QUETIAPINE FUMARATE 25 MG TABLET PO SCH ×4 (08:17→21:40)
[2021-04-27] MEDS: DIVALPROEX SODIUM 250 MG TABLET.DR PO SCH ×4 (08:17→21:40)
[2021-04-27] MEDS: NITROFURANTOIN/NITROFURAN MONOHYDRATE 100 MG CAPSULE PO SCH ×2 (08:17→21:40)
[2021-04-27 16:00] VITALS: BP 115/57
[2021-04-27] MEDS: LORAZEPAM 0.5 MG TABLET PO PRN (16:42)
--- NOTE | 2021-04-27 16:47 | NUR ---
RN-CO: ATIVAN GIVEN FOR RESTLESSNESS MANIFESTED BY OPENING ALL DOORS.
[2021-04-27 20:02] VITALS: BP 109/58
[2021-04-27] MEDS: QUETIAPINE FUMARATE 100 MG TABLET PO SCH (21:40)
[2021-04-28] MEDS: LORAZEPAM 0.5 MG TABLET PO PRN (00:36)
--- NOTE | 2021-04-28 00:36 | NUR ---
Pt restless and agitated. Roaming into other pts rooms and unable to sleep. Least restrictive measures ineffective. Ativan 1 mg 2 tabs prn po given as ordered. Will continue to monitor.
--- NOTE | 2021-04-28 01:40 | NUR ---
Post 1 hr Ativan effective. Pt calm and quiet. Frequent visual check done for safety. Will continue to monitor.
[2021-04-28 08:00] VITALS: BP 148/78
[2021-04-28] MEDS: QUETIAPINE FUMARATE 25 MG TABLET PO SCH ×4 (08:57→21:52)
[2021-04-28] MEDS: DIVALPROEX SODIUM 250 MG TABLET.DR PO SCH ×4 (08:57→21:00)
[2021-04-28] MEDS: NITROFURANTOIN/NITROFURAN MONOHYDRATE 100 MG CAPSULE PO SCH ×2 (08:57→21:00)
[2021-04-28] MEDS: CALCIUM CARB 600MG /VIT D 1 EACH TABLET PO SCH (08:57)
[2021-04-28 16:00] VITALS: BP 136/78
[2021-04-28 20:28] VITALS: BP 142/78
[2021-04-28] MEDS: QUETIAPINE FUMARATE 100 MG TABLET PO SCH (21:52)
--- NOTE | 2021-04-28 22:00 | NUR ---
Patient refused her bed time medications x3 despite frequent encouragement. Educated patient on risk/benefits/
[2021-04-29 08:00] VITALS: BP 117/66
[2021-04-29] MEDS: QUETIAPINE FUMARATE 25 MG TABLET PO SCH ×4 (09:08→22:04)
[2021-04-29] MEDS: DIVALPROEX SODIUM 250 MG TABLET.DR PO SCH ×4 (09:08→20:47)
[2021-04-29] MEDS: CALCIUM CARB 600MG /VIT D 1 EACH TABLET PO SCH (09:08)
[2021-04-29] MEDS: NITROFURANTOIN/NITROFURAN MONOHYDRATE 100 MG CAPSULE PO SCH ×2 (09:08→20:47)
[2021-04-29 16:00] VITALS: BP 102/60
[2021-04-29 20:59] VITALS: BP 117/86
[2021-04-29] MEDS: QUETIAPINE FUMARATE 100 MG TABLET PO SCH (22:04)
[2021-04-30 08:00] VITALS: BP 118/97
[2021-04-30] MEDS: DIVALPROEX SODIUM 250 MG TABLET.DR PO SCH ×4 (08:39→21:37)
[2021-04-30] MEDS: NITROFURANTOIN/NITROFURAN MONOHYDRATE 100 MG CAPSULE PO SCH ×2 (08:39→21:37)
[2021-04-30] MEDS: QUETIAPINE FUMARATE 25 MG TABLET PO SCH ×4 (08:39→22:12)
[2021-04-30] MEDS: CALCIUM CARB 600MG /VIT D 1 EACH TABLET PO SCH (08:39)
--- NOTE | 2021-04-30 10:00 | NUR ---
Court Hearing: Patient's court hearing for 1650 was today and it was upheld for GD.
[2021-04-30 16:00] VITALS: BP 101/57
[2021-04-30 20:00] VITALS: BP 108/60
[2021-04-30] MEDS: QUETIAPINE FUMARATE 100 MG TABLET PO SCH (22:11)
[2021-05-01 08:00] VITALS: BP 122/70
[2021-05-01] MEDS: NITROFURANTOIN/NITROFURAN MONOHYDRATE 100 MG CAPSULE PO SCH ×2 (08:44→21:20)
[2021-05-01] MEDS: CALCIUM CARB 600MG /VIT D 1 EACH TABLET PO SCH (08:44)
[2021-05-01] MEDS: DIVALPROEX SODIUM 250 MG TABLET.DR PO SCH ×4 (08:44→21:20)
[2021-05-01] MEDS: QUETIAPINE FUMARATE 25 MG TABLET PO SCH ×4 (08:45→21:21)
[2021-05-01 16:00] VITALS: BP 126/76
[2021-05-01 20:00] VITALS: BP 148/76
[2021-05-01] MEDS: QUETIAPINE FUMARATE 100 MG TABLET PO SCH (21:20)
[2021-05-02] MEDS: QUETIAPINE FUMARATE 25 MG TABLET PO SCH ×4 (09:20→22:04)
[2021-05-02] MEDS: DIVALPROEX SODIUM 250 MG TABLET.DR PO SCH ×4 (09:21→21:18)
[2021-05-02] MEDS: NITROFURANTOIN/NITROFURAN MONOHYDRATE 100 MG CAPSULE PO SCH ×2 (09:21→21:18)
[2021-05-02] MEDS: CALCIUM CARB 600MG /VIT D 1 EACH TABLET PO SCH (09:21)
[2021-05-02 10:11] VITALS: BP 124/68
[2021-05-02] MEDS: LORAZEPAM 0.5 MG TABLET PO PRN ×2 (14:58→23:32)
--- NOTE | 2021-05-02 15:00 | NUR ---
PT APPEARS ANXIOUS AND AGITATED. ATIVAN 1MG GIVEN. WILL CONTINUE TO MONITOR.
--- NOTE | 2021-05-02 18:06 | NUR ---
PT IS AMBULATORY. PT IS CONFUSED, HOWEVER CALM AND REDIRECTABLE. PT IS MEDICATION COMPLIANT. PT ATTEMPTED TO OPEN DOOR TWICE DURING SHIFT. AWOL RISK.
[2021-05-02 20:34] VITALS: BP 132/83
[2021-05-02] MEDS: QUETIAPINE FUMARATE 100 MG TABLET PO SCH (22:03)
--- NOTE | 2021-05-02 23:36 | NUR ---
RN NOTE: ANXIETY/AGITATION PATIENT IS ANXIOUS, RESTLESS, EASILY AGITATED. PRN ATIVAN 1 MG PO ADMINISTERED ORDERED. WILL CONTINUE TO MONITOR.
[2021-05-03 08:00] VITALS: BP 134/78
[2021-05-03] MEDS: DIVALPROEX SODIUM 250 MG TABLET.DR PO SCH ×5 (10:31→21:22)
[2021-05-03] MEDS: QUETIAPINE FUMARATE 25 MG TABLET PO SCH ×5 (10:32→22:06)
[2021-05-03] MEDS: CALCIUM CARB 600MG /VIT D 1 EACH TABLET PO SCH (10:32)
[2021-05-03] MEDS: NITROFURANTOIN/NITROFURAN MONOHYDRATE 100 MG CAPSULE PO SCH ×2 (10:32→21:10)
--- NOTE | 2021-05-03 13:49 | NUR ---
too sedated, 1300 meds not given.
[2021-05-03 14:54] LABS: BASOPHILS % (AUTO) 0.5 % (0.0-2.0); EOSINOPHILS % (AUTO) 2.5 % (0.0-6.0); HEMATOCRIT 41 % (33-45); HEMOGLOBIN 13.3 g/dL (11.5-14.8); LYMPHOCYTES # (AUTO) 1.5 K/uL (0.8-4.8); LYMPHOCYTES % (AUTO) 29.6 % (20.0-44.0); MEAN CORPUSCULAR HGB CONC 33 g/dl (31.0-36.0); MEAN CORPUSCULAR VOLUME 91 fL (82-100); MONOCYTES # (AUTO) 0.4 K/uL (0.1-1.30); MONOCYTES % (AUTO) 7.6 % (2.0-12.0); NEUTROPHILS % (AUTO) 59.8 % (43.0-81.0); PLATELET COUNT (AUTO) 201 K/uL (150-450); RED BLOOD CELL COUNT(AUTO) 4.45 MIL/uL (4.0-5.2); WHITE BLOOD COUNT (AUTO) 5.1 K/uL (4.3-11.0)
[2021-05-03 15:30] LABS: ALBUMIN 3.4 g/dL (3.4-5.0); BILIRUBIN,TOTAL 0.2 mg/dL (0.2-1.0); CALCIUM, SERUM 8.7 mg/dL (8.5-10.1); CREATININE 0.7 mg/dL (0.6-1.3); POTASSIUM 4.2 mmol/L (3.5-5.1); TOTAL PROTEIN, SERUM 7.4 g/dL (6.4-8.2)
[2021-05-03 16:00] VITALS: BP 121/76
[2021-05-03 19:45] VITALS: BP 128/70
[2021-05-03 20:10] VITALS: BP 128/70
[2021-05-03] MEDS: QUETIAPINE FUMARATE 100 MG TABLET PO SCH (22:06)
[2021-05-03] MEDS: LORAZEPAM 0.5 MG TABLET PO PRN (23:27)
--- NOTE | 2021-05-03 23:28 | NUR ---
RN NOTE: ANXIETY/AGITATION PATIENT IS ANXIOUS, RESTLESS, EASILY AGITATED, UNABLE TO SLEEP. PRN ATIVAN 1 MG PO ADMINISTERED ORDERED. WILL CONTINUE TO MONITOR.
[2021-05-04 08:00] VITALS: BP 121/57
[2021-05-04] MEDS: QUETIAPINE FUMARATE 25 MG TABLET PO SCH ×4 (08:04→21:36)
[2021-05-04] MEDS: CALCIUM CARB 600MG /VIT D 1 EACH TABLET PO SCH (08:04)
[2021-05-04] MEDS: DIVALPROEX SODIUM 250 MG TABLET.DR PO SCH ×4 (08:04→21:35)
[2021-05-04] MEDS: NITROFURANTOIN/NITROFURAN MONOHYDRATE 100 MG CAPSULE PO SCH (08:04)
[2021-05-04 16:00] VITALS: BP 126/68
[2021-05-04 19:37] VITALS: BP 142/90
[2021-05-04] MEDS: QUETIAPINE FUMARATE 100 MG TABLET PO SCH (21:35)
[2021-05-05 08:00] VITALS: BP 150/57
[2021-05-05] MEDS: DIVALPROEX SODIUM 250 MG TABLET.DR PO SCH ×4 (08:59→20:38)
[2021-05-05] MEDS: CALCIUM CARB 600MG /VIT D 1 EACH TABLET PO SCH (08:59)
[2021-05-05] MEDS: QUETIAPINE FUMARATE 25 MG TABLET PO SCH ×4 (08:59→21:08)
[2021-05-05 16:00] VITALS: BP 121/69
[2021-05-05] MEDS: QUETIAPINE FUMARATE 100 MG TABLET PO SCH (21:08)
[2021-05-06 08:00] VITALS: BP 116/66
[2021-05-06] MEDS: DIVALPROEX SODIUM 250 MG TABLET.DR PO SCH ×4 (09:15→20:54)
[2021-05-06] MEDS: CALCIUM CARB 600MG /VIT D 1 EACH TABLET PO SCH (09:15)
[2021-05-06] MEDS: QUETIAPINE FUMARATE 25 MG TABLET PO SCH ×4 (09:15→21:06)
--- NOTE | 2021-05-06 09:59 | NUR ---
MARCO Family Contact: SW contacted pt's son Yusef ([phone]) and left a voicemail that pt will be discharged 05/07 back to [facility].
[2021-05-06 16:00] VITALS: BP 135/75
--- NOTE | 2021-05-06 17:30 | NUR ---
covid test done and taken to lab.
[2021-05-06 20:00] VITALS: BP 113/58
[2021-05-06] MEDS: QUETIAPINE FUMARATE 100 MG TABLET PO SCH (21:05)
[2021-05-07 08:00] VITALS: BP 129/79
[2021-05-07] MEDS: CALCIUM CARB 600MG /VIT D 1 EACH TABLET PO SCH (09:25)
[2021-05-07] MEDS: QUETIAPINE FUMARATE 25 MG TABLET PO SCH ×2 (09:25→12:38)
[2021-05-07] MEDS: DIVALPROEX SODIUM 250 MG TABLET.DR PO SCH ×2 (09:26→12:37)
--- NOTE | 2021-05-07 10:00 | NUR ---
MARCO Discharge Note: Patient will be discharged to a locked alf facility to [facility] [address], [place] [address]; ([phone]). Please arrange ambulance transportation at 1PM. Rubbing Bed Operator spoke with Tala, Skip Operator at [facility]; ([phone]), who stated patient will be accepted at facility today. Patient is alert and oriented x1, and is not able to plan for self-care at this time, but is willing to accept care provided for her at the facility. Patient denies any suicidal or homicidal ideations. Patient is aware and agreeable with discharge plans. SW contacted patients son Yusef ([phone]) and left a detailed voicemail of pt's discharge. Patient will continue to follow-up with her (Psychiatrist) Dr. Reno [address], [place] [address]; ([phone]) and (Panel Raiser Operator) Dr. Echeverria [address], [place] [address]; ([phone]). Patient presents with euthymic mood and congruent affect.
--- NOTE | 2021-05-07 13:40 | NUR ---
RN-DISCHARGE NOTES RECEIVED A DISCHARGE ORDER FROM DR. SAINI ( PSYCHIATRIST) AND DR. DIEGO MEDICALLY CLEARED PATIENT FOR DISCHARGE. PATIENT A/O TO NAME ONLY. DID NOT VERBALIZE SI/HI,DENIES VISUAL/AUDITORY HALLUCINATIONS AT THE TIME OF DISCHARGE. REPORT WAS GIVEN TO MESFIN( FACILITY RN). PER NOTES PATIENT'S SON VALERI WAS AWARE OF THE DISCHARGE.PATIENT REFUSED FULL BODY ASSESSMENT PRIOR TO DISCHARGED.PATIENT WAS GAME ENGINEER BY THE AMBULANCE VIA GURNEY WITH TWO STAFF ASSIST BELONGINGS WAS GIVEN BACK TO THE PATIENT. UPPER AND LOWER DENTURES WAS WITH PATIENT. MASK WAS PROVIDED.
== END 2021-05-07 13:40 | DRG 885 ==
LOC: ER 10:54 → GPS 17:01
PROVIDERS: ADMIT Psychiatry & Neurology Psychosomatic Medicine; ATTEND Nurse Practitioner Acute Care
DX: F25.0 Schizoaffective disorder, bipolar type (principal); F01.50 Vascular dementia, unspecified severity, without behavioral disturbance, psychotic disturbance, mood disturbance, and anxiety; N39.0 Urinary tract infection, site not specified; M84.454A Pathological fracture, pelvis, initial encounter for fracture; F39 Unspecified mood [affective] disorder; M19.90 Unspecified osteoarthritis, unspecified site; W19.XXXA Unspecified fall, initial encounter; Z20.822 Contact with and (suspected) exposure to COVID-19; Z73.6 Limitation of activities due to disability; F29 Unspecified psychosis not due to a substance or known physiological condition; R55 Syncope and collapse; M85.80 Other specified disorders of bone density and structure, unspecified site; F41.9 Anxiety disorder, unspecified; Y93.9 Activity, unspecified; Y92.129 Unspecified place in nursing home as the place of occurrence of the external cause
CPT/HCPCS: 36415; 70450-TC; 71045-TC; 72125-TC; 72170-TC; 73030-TC; 73502; 80048-TC; 80053-TC; 80061-TC; 80076-TC; 80164-TC; 81001; 82962-TC; 84484-TC; 85025-TC; 85730-TC; 87081-TC; 87086-TC; 93307-TC; C9803; L0172

== ENCOUNTER 2021-09-15 09:22 | Emergency (ER) | payer MEDICARE, MEDICAID ==
[~2021-09-15] VITALS: Ht 167.6 cm; Wt 89.1 kg
[~2021-09-15 09:22] MED LIST changes: +QUERCETIN PO
--- NOTE | 2021-09-15 09:30 | NUR ---
TO ER BED 9, BIB ems from SNF for R hip pain s/p fall three days ago, aaox2, breathing even and non labored, connected to monitor, awaiting md ferreira
--- NOTE | 2021-09-15 09:40 | NUR ---
SALINE LOCK ESTABLISHED, BLOOD DRAWN AND SENT TO LAB
--- NOTE | 2021-09-15 09:48 | NUR ---
TAKEN TO CT
[2021-09-15 10:22] LABS: BASOPHILS % (AUTO) 0.7 % (0.0-2.0); EOSINOPHILS % (AUTO) 2.2 % (0.0-6.0); HEMATOCRIT 41 % (33-45); HEMOGLOBIN 13.1 g/dL (11.5-14.8); LYMPHOCYTES # (AUTO) 1.9 K/uL (0.8-4.8); LYMPHOCYTES % (AUTO) 41.2 % (20.0-44.0); MEAN CORPUSCULAR HGB CONC 32 g/dl (31.0-36.0); MEAN CORPUSCULAR VOLUME 91 fL (82-100); MONOCYTES # (AUTO) 0.3 K/uL (0.1-1.30); MONOCYTES % (AUTO) 6.9 % (2.0-12.0); NEUTROPHILS # (AUTO) 2.2 K/uL (1.8-8.9); PLATELET COUNT (AUTO) 224 K/uL (150-450); RED BLOOD CELL COUNT(AUTO) 4.45 MIL/uL (4.0-5.2); WHITE BLOOD COUNT (AUTO) 4.5 K/uL (4.3-11.0)
[2021-09-15 10:36] LABS: CALCIUM, SERUM 8.9 mg/dL (8.5-10.1); CARBON DIOXIDE 32 mmol/L (21-32); CHLORIDE 105 mmol/L (98-107); CREATININE 0.7 mg/dL (0.6-1.3); GLUCOSE 101 mg/dL (74-106); POTASSIUM 4.3 mmol/L (3.5-5.1); SODIUM SERUM 143 mmol/L (136-145); UREA NITROGEN, BLOOD 13 mg/dL (7-18)
--- NOTE | 2021-09-15 10:40 | NUR ---
UNABLE TO PROVIDE URINE AT THIS TIME
[2021-09-15 10:41] LABS: ALANINE AMINOTRANSFERASE 18 U/L (12-78); ALBUMIN 3.3 g/dL (3.4-5.0); ALKALINE PHOSPHATASE 65 U/L (46-116); ASPARTATE AMINOTRANSFERASE 13 U/L (15-37); BILIRUBIN,DIRECT 0.1 mg/dL (0.0-0.2); BILIRUBIN,TOTAL 0.3 mg/dL (0.2-1.0); TOTAL PROTEIN, SERUM 7.6 g/dL (6.4-8.2)
--- NOTE | 2021-09-15 12:12 | NUR ---
CALLED RADIOLOGY TO FOLLOW UP CT RESULTS, TECH SAID IT'S BEING READ AT THE MOMENT
--- NOTE | 2021-09-15 12:39 | NUR ---
URINE COLLECTED AND SENT TO LAB
--- NOTE | 2021-09-15 13:02 | NUR ---
CALLED [facility] AND SET UP BLS TRANSPORT TO [facility] ETA 1338
[2021-09-15 14:11] LABS: BILIRUBIN,URINE NEGATIVE (NEGATIVE); COLOR,URINE YELLOW (YELLOW); LEUKOCYTE ESTERASE ,URINE NEGATIVE (NEGATIVE); NITRITE, URINE NEGATIVE (NEGATIVE); PROTEIN,URINE NEGATIVE (NEGATIVE); UGLUCOSE NEGATIVE (NEGATIVE); UROBILINOGEN,URINE 0.2 EU/dL (0.2)
--- NOTE | 2021-09-15 14:30 | NUR ---
PICKED UP BY TRANSPORT IN STABLE CONDITION
[2021-09-15 14:41] VITALS: BP 116/72
== END 2021-09-15 14:41 ==
LOC: ER 09:23
DX: M25.551 Pain in right hip (principal); F03.90 Unspecified dementia, unspecified severity, without behavioral disturbance, psychotic disturbance, mood disturbance, and anxiety; E78.5 Hyperlipidemia, unspecified; F31.9 Bipolar disorder, unspecified; Z98.890 Other specified postprocedural states; Z79.899 Other long term (current) drug therapy; W19.XXXA Unspecified fall, initial encounter; Y93.89 Activity, other specified; Y92.89 Other specified places as the place of occurrence of the external cause; Y99.8 Other external cause status
CPT/HCPCS: 36415; 71045-TC; 72192-TC; 80048-TC; 80076-TC; 83605-TC; 84484-TC; 85025-TC; 85730-TC; 87040-TC; 87086-TC

== ENCOUNTER 2025-02-27 10:50 | Inpatient (IN) | payer MEDICARE, OTHER ==
[~2025-02-27] VITALS: Ht 160 cm; Wt 80.3 kg
[2025-02-27 11:18] LABS: PLATELET COUNT (AUTO) 268 K/uL (150-450); RED BLOOD CELL COUNT(AUTO) 4.22 MIL/uL (4.0-5.2); RED CELL DISTRIBUTION WIDTH 13.4 % (11.5-15.0); WHITE BLOOD COUNT (AUTO) 5.5 K/uL (4.3-11.0)
[2025-02-27] MEDS: IV NS 0.9% 1,000 ML BAG IV ONE (11:20)
[2025-02-27 11:26] LABS: CALCIUM, SERUM 8.3 mg/dL (8.5-10.1); CREATININE 0.5 mg/dL (0.6-1.3); SODIUM SERUM 142 mmol/L (136-145); UREA NITROGEN, BLOOD 13 mg/dL (7-18)
[2025-02-27] MEDS: CEFEPIME 1 GM in IV D5W 50 ML IV ONE (11:26)
[2025-02-27 11:31] LABS: INR 0.98 (0.91-1.10)
[2025-02-27 11:32] LABS: ASPARTATE AMINOTRANSFERASE 12 U/L (15-37); TOTAL PROTEIN, SERUM 6.7 g/dL (6.4-8.2)
[2025-02-27 11:34] LABS: LACTIC ACID 0.9 mmol/L (0.4-2.0)
[2025-02-27] MEDS: VANCOMYCIN 1 GM in IV D5W 250 ML IV ONE (11:45)
[2025-02-27] MEDS ORDERED: NA P133E RC (12:01)
[2025-02-27] MEDS ORDERED: POLY15DR31 EACHEYE (12:01)
[2025-02-27] MEDS ORDERED: MULT-213 PO (12:01)
[2025-02-27] MEDS ORDERED: CALC-1321 PO (12:01)
[2025-02-27] MEDS ORDERED: CHOL500062 PO (12:01)
[2025-02-27] MEDS ORDERED: LEVO25TA9 PO (12:01)
[2025-02-27] MEDS ORDERED: ERGO500093 PO (12:01)
[2025-02-27] MEDS ORDERED: SENN-18 PO (12:01)
[2025-02-27] MEDS ORDERED: CRAN425C6 PO (12:01)
[2025-02-27] MEDS ORDERED: ACET-2030 PO (12:01)
[2025-02-27] MEDS ORDERED: ATOR40TA PO (12:01)
[2025-02-27] MEDS ORDERED: DIVA-76 PO (12:01)
[2025-02-27] MEDS ORDERED: MAGN400O6 PO (12:01)
[2025-02-27 12:56] LABS: APPEARANCE,URINE SLIGHTLY CLOUDY (CLEAR); BLOOD, URINE TRACE-INTA Ery/uL (NEGATIVE); LEUKOCYTE ESTERASE ,URINE 3+ (NEGATIVE); NITRITE, URINE NEGATIVE (NEGATIVE); UGLUCOSE NEGATIVE (NEGATIVE)
[2025-02-27] MEDS: DIVALPROEX SODIUM 250 MG TABLET.DR PO SCH (13:00)
[2025-02-27 13:22] LABS: ADD URINE CULTURE YES
[2025-02-27 14:00] VITALS: BP 131/62; TEMP 98.2; O2SAT 95
[2025-02-27] MEDS ORDERED: ONDANSETRON HCL/PF 4 MG/2 ML VIAL IVP PRN (14:30)
[2025-02-27] MEDS ORDERED: DOSING PER PHARMACY-CEFEPIME IVPB XX PRN (14:30)
[2025-02-27] MEDS ORDERED: MORPHINE SULFATE INJ 2 MG/ML DISP.SYRIN IV PRN (14:30)
[2025-02-27] MEDS ORDERED: hydrALAZINE HCL IV 20 MG VIAL IV PRN (14:30)
[2025-02-27] MEDS ORDERED: ACETAMINOPHEN 325 MG TABLET PO PRN (14:30)
[2025-02-27] MEDS: CEFEPIME 2 GM in IV D5W 100 ML IV SCH (18:35)
[2025-02-27] MEDS: IV NS 0.9% 1,000 ML IV SCH (18:35)
[2025-02-27] MEDS: POLYVINYL ALCOHOL 15 ML BOTTLE OP SCH (18:57)
[2025-02-27 20:00] VITALS: BP 138/69; TEMP 98.2; O2SAT 95
[2025-02-27] MEDS: ATORVASTATIN 40 MG TABLET PO SCH (22:34)
[2025-02-27] MEDS: HEPARIN SODIUM, PORCINE 5000 UNITS/1 ML VIAL SQ SCH (22:35)
[2025-02-28 04:00] VITALS: BP 149/66; TEMP 98.6; O2SAT 96
[2025-02-28 07:01] LABS: PLATELET COUNT (AUTO) 252 K/uL (150-450); RED BLOOD CELL COUNT(AUTO) 4.38 MIL/uL (4.0-5.2); RED CELL DISTRIBUTION WIDTH 13.5 % (11.5-15.0); WHITE BLOOD COUNT (AUTO) 5.3 K/uL (4.3-11.0)
[2025-02-28] MEDS: LEVOTHYROXINE SODIUM 25 MCG TABLET PO SCH (07:02)
[2025-02-28 07:37] LABS: ASPARTATE AMINOTRANSFERASE 15.0 U/L (15-37); CALCIUM, SERUM 8.2 mg/dL (8.5-10.1); CREATININE 0.5 mg/dL (0.6-1.3); PHOSPHORUS 3.0 mg/dL (2.5-4.9); SODIUM SERUM 142.0 mmol/L (136-145); TOTAL PROTEIN, SERUM 7.0 g/dL (6.4-8.2); UREA NITROGEN, BLOOD 8.0 mg/dL (7-18)
[2025-02-28 08:00] VITALS: BP 134/74; TEMP 97.5; O2SAT 99
[2025-02-28 16:00] VITALS: BP 109/85; TEMP 97.7; O2SAT 97
[2025-02-28 20:00] VITALS: BP 125/83; TEMP 99; O2SAT 98
[2025-03-01 04:00] VITALS: BP 96/50; TEMP 97.7; O2SAT 96
[2025-03-01 08:00] VITALS: BP 120/91; TEMP 97.9; O2SAT 98
[2025-03-01 16:00] VITALS: BP 117/64; TEMP 97.5; O2SAT 97
[2025-03-01 20:00] VITALS: BP 120/84; TEMP 98.4; O2SAT 97
[2025-03-02 04:00] VITALS: BP 100/65; TEMP 97.9; O2SAT 96
[2025-03-02 08:00] VITALS: BP 110/52; TEMP 97.9; O2SAT 98
== END 2025-03-02 13:50 | DRG 641 ==
LOC: ER 10:55 → MEDSG1 13:06
PROVIDERS: ADMIT Internal Medicine; ATTEND Internal Medicine
DX: E86.0 Dehydration (principal); E44.1 Mild protein-calorie malnutrition; E78.5 Hyperlipidemia, unspecified; E88.09 Other disorders of plasma-protein metabolism, not elsewhere classified; B96.89 Other specified bacterial agents as the cause of diseases classified elsewhere; F31.9 Bipolar disorder, unspecified; E03.9 Hypothyroidism, unspecified; Z68.31 Body mass index [BMI] 31.0-31.9, adult; F03.90 Unspecified dementia, unspecified severity, without behavioral disturbance, psychotic disturbance, mood disturbance, and anxiety
CPT/HCPCS: 36415; 71045-TC; 80048-TC; 80053-TC; 80076-TC; 80164-TC; 81001; 83605-TC; 83735-TC; 84100-TC; 84484-TC; 85025-TC; 85730-TC; 87040-TC; 87086-TC; 92526; 92611-TC; A4223; G0378; J0692; J1644; J3373; J7030; J7050; J7060

== ENCOUNTER 2025-03-26 19:11 | Inpatient (IN) | payer MEDICARE, OTHER ==
[~2025-03-26] VITALS: Ht 162.6 cm; Wt 72.6 kg
[~2025-03-26 19:11] MED LIST changes: +ACET-2030 PO; +ATOR40TA PO; +CALC-1321 PO; +CHOL500062 PO; +CRAN425C6 PO; +DIVA-76 PO; +ERGO500093 PO; +LEVO25TA9 PO; -MAG30ORA PO; +MULT-213 PO; +NA P133E RC; +POLY15DR31 EACHEYE; -QUERCETIN PO; +SENN-18 PO
[2025-03-26] MEDS: LIDOCAINE 1%-EPI 1:100,000 20 ML VIAL TP ONE (19:57)
[2025-03-26] MEDS ORDERED: LIDOCAINE 1%-EPI 1:100,000 20 ML VIAL ONE (19:57)
[2025-03-26] MEDS: IV NS 0.9% 1,000 ML BAG IV ONE (19:57)
[2025-03-26 20:04] LABS: PLATELET COUNT (AUTO) 223 K/uL (150-450); RED BLOOD CELL COUNT(AUTO) 4.77 MIL/uL (4.0-5.2); RED CELL DISTRIBUTION WIDTH 13.9 % (11.5-15.0); WHITE BLOOD COUNT (AUTO) 9.1 K/uL (4.3-11.0)
[2025-03-26 20:22] LABS: CALCIUM, SERUM 8.7 mg/dL (8.5-10.1); CREATININE 0.8 mg/dL (0.6-1.3); SODIUM SERUM 141 mmol/L (136-145); UREA NITROGEN, BLOOD 13 mg/dL (7-18)
[2025-03-26 20:27] LABS: INR 0.98 (0.91-1.10)
[2025-03-26 20:28] LABS: ASPARTATE AMINOTRANSFERASE 19 U/L (15-37); TOTAL PROTEIN, SERUM 8.1 g/dL (6.4-8.2)
[2025-03-26 20:40] LABS: LACTIC ACID 2.8 mmol/L (0.4-2.0)
[2025-03-26] MEDS ORDERED: VANCOMYCIN 1 GM /D5W 250 ML PB IV ONE (20:51)
[2025-03-26] MEDS ORDERED: ACETAMINOPHEN 325 MG/SUPP.RECT RC ONE (20:52)
[2025-03-26] MEDS ORDERED: TDAP [DIPH/PERTUSSIS/TET] 0.5 ML VIAL IM ONE (20:52)
[2025-03-26] MEDS ORDERED: PIPERACI/TAZO 3.375GM/D5W 50ML PB IV ONE (20:52)
[2025-03-26] MEDS: ACETAMINOPHEN 650 MG/SUPP.RECT RC ONE (20:57)
[2025-03-26] MEDS: PIPERACILLIN /TAZOBACTAM 3.375 G in IV D5W 50 ML IV ONE (20:57)
[2025-03-26] MEDS: TDAP [DIPH/PERTUSSIS/TET] 0.5 ML VIAL IM ONE (21:33)
[2025-03-26] MEDS: VANCOMYCIN 1 GM in IV D5W 250 ML IV ONE (21:34)
[2025-03-26] MEDS ORDERED: ONDANSETRON HCL/PF 4 MG/2 ML VIAL IVP PRN (22:30)
[2025-03-26] MEDS ORDERED: Z GUARD REMEDY 4 OZ OINT TP PRN (22:30)
[2025-03-26] MEDS ORDERED: DOSING PER PHARMACY-VANCOMYCIN IV XX PRN (22:30)
[2025-03-27] MEDS ORDERED: CEFEPIME 1 GM VIAL ONE (00:20)
[2025-03-27] MEDS: CEFEPIME 2 GM in IV D5W 100 ML IV ONE (00:48)
[2025-03-27] MEDS: IV NS 0.9% 1,000 ML IV PRN (00:48)
[2025-03-27 04:00] VITALS: BP 151/90; TEMP 100; O2SAT 94
[2025-03-27] MEDS: IV NS 0.9% 1,000 ML IV SCH (04:29)
[2025-03-27] MEDS: ACETAMINOPHEN 650 MG/SUPP.RECT RC PRN (04:29)
[2025-03-27 07:00] LABS: CALCIUM, SERUM 8.4 mg/dL (8.5-10.1); CREATININE 0.7 mg/dL (0.6-1.3); PHOSPHORUS 2.9 mg/dL (2.5-4.9); SODIUM SERUM 144.0 mmol/L (136-145); UREA NITROGEN, BLOOD 8.0 mg/dL (7-18)
[2025-03-27 07:09] LABS: PLATELET COUNT (AUTO) 187 K/uL (150-450); RED BLOOD CELL COUNT(AUTO) 4.38 MIL/uL (4.0-5.2); RED CELL DISTRIBUTION WIDTH 13.4 % (11.5-15.0); WHITE BLOOD COUNT (AUTO) 7.1 K/uL (4.3-11.0)
[2025-03-27 08:00] VITALS: BP 151/83; TEMP 97.9; O2SAT 100
[2025-03-27] MEDS: VANCOMYCIN 500 MG in IV D5W 100ml IV ONE (09:34)
[2025-03-27] MEDS: dexaMETHasone SOD PHOSPHATE 10 MG/ML VIAL IV SCH (09:34)
[2025-03-27] MEDS: HEPARIN SODIUM, PORCINE 5000 UNITS/1 ML VIAL SQ SCH (09:35)
[2025-03-27] MEDS: POTASSIUM CL. PREMIX PERIPHER. 50 ML IV SCH (11:00)
[2025-03-27 11:30] VITALS: BP 154/82; TEMP 97.7; O2SAT 100
[2025-03-27 12:00] VITALS: BP 154/82; TEMP 97.7; O2SAT 100
[2025-03-27] MEDS: CEFEPIME 2 GM in IV D5W 100 ML IV SCH (13:43)
[2025-03-27 16:00] VITALS: BP 139/70; TEMP 97.7; O2SAT 96
[2025-03-27 20:00] VITALS: BP 133/58; TEMP 98.1; O2SAT 96
[2025-03-27] MEDS: VANCOMYCIN 1 GM in IV D5W 250ml IV SCH (20:16)
[2025-03-28] VITALS: BP 103/54; TEMP 97.2; O2SAT 92
[2025-03-28] MEDS: IV NS 0.9% 1,000 ML IV PRN (01:06)
[2025-03-28 04:00] VITALS: BP 125/55; TEMP 97.9; O2SAT 98
[2025-03-28 07:55] LABS: PLATELET COUNT (AUTO) 208 K/uL (150-450); RED BLOOD CELL COUNT(AUTO) 4.25 MIL/uL (4.0-5.2); RED CELL DISTRIBUTION WIDTH 13.4 % (11.5-15.0); WHITE BLOOD COUNT (AUTO) 5.8 K/uL (4.3-11.0)
[2025-03-28 08:00] VITALS: BP 138/92; TEMP 98.7; O2SAT 97
[2025-03-28 09:16] LABS: CALCIUM, SERUM 8.6 mg/dL (8.5-10.1); CREATININE 0.8 mg/dL (0.6-1.3); SODIUM SERUM 145.0 mmol/L (136-145); UREA NITROGEN, BLOOD 10.0 mg/dL (7-18)
[2025-03-28 09:23] LABS: PHOSPHORUS 3.1 mg/dL (2.5-4.9)
[2025-03-28 12:00] VITALS: BP 139/88; TEMP 98.5; O2SAT 98
[2025-03-28 16:00] VITALS: BP 129/70; TEMP 98.4; O2SAT 98
[2025-03-28 20:00] VITALS: BP 130/58; TEMP 98.4; O2SAT 96
[2025-03-29] VITALS: BP 133/61; TEMP 97.5; O2SAT 99
[2025-03-29 04:00] VITALS: BP 126/76; TEMP 98; O2SAT 99
[2025-03-29 08:00] VITALS: BP 108/69; TEMP 98.1; O2SAT 98
[2025-03-29 08:18] LABS: PLATELET COUNT (AUTO) 227 K/uL (150-450); RED BLOOD CELL COUNT(AUTO) 4.35 MIL/uL (4.0-5.2); RED CELL DISTRIBUTION WIDTH 13.4 % (11.5-15.0); WHITE BLOOD COUNT (AUTO) 7.7 K/uL (4.3-11.0)
[2025-03-29 08:26] LABS: CALCIUM, SERUM 8.5 mg/dL (8.5-10.1); CREATININE 0.7 mg/dL (0.6-1.3); SODIUM SERUM 142.0 mmol/L (136-145); UREA NITROGEN, BLOOD 11.0 mg/dL (7-18)
[2025-03-29 08:43] LABS: PHOSPHORUS 3.1 mg/dL (2.5-4.9)
[2025-03-29] MEDS ORDERED: POLYVINYL ALCOHOL 15 ML BOTTLE EACHEYE PRN (09:30)
[2025-03-29] MEDS: MULTIVIT W/MINERALS 1 TAB TABLET PO SCH (10:00)
[2025-03-29] MEDS: POTASSIUM CHLORIDE 20 MEQ TAB.PRT.SR PO SCH (10:00)
[2025-03-29] MEDS: LEVOTHYROXINE SODIUM 25 MCG TABLET PO SCH (10:00)
[2025-03-29] MEDS: DIVALPROEX SODIUM 250 MG TABLET.DR PO SCH (10:00)
[2025-03-29] MEDS: ERGOCALCIFEROL (VITAMIN D 2) 50,000 UNIT CAPSULE PO SCH (10:14)
[2025-03-29 12:00] VITALS: BP 97/52; TEMP 97.1; O2SAT 96
[2025-03-29 16:00] VITALS: BP 109/65; TEMP 97.5; O2SAT 96
[2025-03-29 20:00] VITALS: BP_SYST 150; BP_SYST 95; BP_DIAS 64; BP_DIAS 72; TEMP 98.2; O2SAT 97
[2025-03-29] MEDS ORDERED: SENNOSIDES 8.6 MG TABLET PO SCH (22:00)
[2025-03-29] MEDS ORDERED: ATORVASTATIN 40 MG TABLET PO SCH (22:00)
[2025-03-30] MEDS ORDERED: CALCIUM CARB 600MG /VIT D 1 EACH TABLET PO SCH (09:00)
== END 2025-03-29 22:15 | DRG 177 ==
LOC: ER 19:13 → TELE1 21:35
PROVIDERS: ADMIT Registered Nurse Psychiatric/Mental Health; ATTEND Nurse Practitioner Acute Care
DX: U07.1 COVID-19 (principal); G93.41 Metabolic encephalopathy; E87.20 Acidosis, unspecified; F25.9 Schizoaffective disorder, unspecified; E03.9 Hypothyroidism, unspecified; E78.5 Hyperlipidemia, unspecified; F31.9 Bipolar disorder, unspecified; R32 Unspecified urinary incontinence; L22 Diaper dermatitis; F09 Unspecified mental disorder due to known physiological condition; S01.81XA Laceration without foreign body of other part of head, initial encounter; S80.812A Abrasion, left lower leg, initial encounter; W19.XXXA Unspecified fall, initial encounter; Y93.9 Activity, unspecified; Y92.129 Unspecified place in nursing home as the place of occurrence of the external cause; F03.90 Unspecified dementia, unspecified severity, without behavioral disturbance, psychotic disturbance, mood disturbance, and anxiety
CPT/HCPCS: 36415; 70450-TC; 71045-TC; 72125-TC; 72170-TC; 80048-TC; 80076-TC; 80202-TC; 83605-TC; 83735-TC; 84100-TC; 84484-TC; 85025-TC; 85378-TC; 85730-TC; 86140-TC; 87040-TC; 87081-TC; 90715; 92526; 92611; 97110-TC; 97530-TC; A4223; A6253; A6403; G0378; J0692; J1100; J1644; J2543; J3373; J3480; J3490; J7030; J7050; J7060